=== PATIENT | female | born 1965 | race American Indian/Alaskan Native ===

== ENCOUNTER 2018-12-09 09:32 | Emergency (ER) | payer MEDICAID ==
[2018-12-09] MEDS ORDERED: Aspirin 81 MG Tab.Chew PO ONE (10:13)
[2018-12-09] MEDS ORDERED: Nitroglycerin 0.4 MG Tab.SL SL PRN (10:13)
--- NOTE | 2018-12-09 10:17 | EDM.PDOC ---
ED HPI GENERAL MEDICAL PROBLEM - General Chief Complaint: Chest Pain Stated Complaint: SOB,CHEST PAIN Time Seen by Provider: 12/09/18 09:43 Source of Information: Reports: Patient History Limitations: Reports: No Limitations - History of Present Illness INITIAL COMMENTS - FREE TEXT/NARRATIVE: HISTORY AND PHYSICAL: History of present illness: Patient is a 53-year-old female who presents to the emergency room with complaints of chest pain and shortness of breath that started last night. Patient states over the past several weeks she's been diagnosed with pneumonia, took antibiotics and was better. She states that last night she started to feel short of breath and had midsternal chest pain. She rates her pain a 10 out of 10. She has not taken any medications for her pain. She states the pain radiates into her right breast and down under her ribs. He describes the pain as sharp and intermittent. She states she has pain if she takes a deep breath in. She states the pain is also worse if she were to lay back. Patient is a current smoker and smokes about half a pack a day for 30 years. Patient states her right knee has also been hurting and seems to be a little bit more swollen. She states she is able to fully move the knee. She denies any injury to the knee. She was seeing Dr. Hernadez in clinic for her pneumonia follow up and knee pain. She states that he told her to come to the ED. Dr Hernadez reported some concern of patient's chest pain and the pain in her right lower extremity. Patient denies fever, chills, headache, nausea, vomiting, diarrhea, abdominal pain, dizziness, syncope, diaphoresis, pain that radiates into either extremity , or all other GI, , cardiovascular, or respiratory concerns. Patient denies any health history. Review of systems: As per history of present illness and below otherwise all systems reviewed and negative. Past medical history: As per history of present illness and as reviewed below otherwise noncontributory. Surgical history: As per history of present illness and as reviewed below otherwise noncontributory. Social history: See social history for further information Family history: As per history of present illness and as reviewed below otherwise noncontributory. Physical exam: Physical exam is limited due to patient's agitation/fidget. General: Well-developed and well-nourished 53-year-old female. Alert and oriented. Nontoxic appearing and in no acute distress. She appears fidgety and agitated during my interview. HEENT: Atraumatic, normocephalic, pupils equal and reactive bilaterally, negative for conjunctival pallor or scleral icterus, mucous membranes moist, TMs normal bilaterally, throat clear, neck supple, nontender, trachea midline. No drooling or trismus noted. No meningeal signs. No hot potato voice noted. Lungs: Lung exam was limited due to patient's agitation. Clear to auscultation, breath sounds equal bilaterally, chest nontender. Heart: S1S2, regular rate and rhythm without overt murmur Abdomen: Soft, nondistended, nontender. Negative for masses or hepatosplenomegaly. Negative for costovertebral tenderness. Pelvis: Stable nontender. Genitourinary: Deferred. Rectal: Deferred. Skin: Intact, warm, dry. No lesions or rashes noted. Extremities: Right knee is slightly more edematous than the left without erythema. Full range of motion and strength intact of knees bilaterally. Capillary refill less than 2 seconds. Dorsalis pedis and posterior tibial pulses are grossly intact. Atraumatic, negative for cords or calf pain. Neurovascular unremarkable. Neuro: Awake, alert, oriented. Cranial nerves II through XII unremarkable. Cerebellum unremarkable. Motor and sensory unremarkable throughout. Exam nonfocal. Notes: Exam today is limited due to patient's agitation and fidgety. To complete lab work and imaging to assess patient's complaints. After 1 tablet of nitroglycerin sublingual the patient's blood pressure did go down to 90s over 60s. Will discontinue the nitroglycerin and give her an IV fluid bolus. We'll continue to monitor patient closely. Chest x-ray shows no acute findings and no significant changes from prior exam. Patient's D.Dimer is elevated; will perform a CTA. Patient is adamant about not providing a urine sample. Unable to perform tasks due to this. Knee x-ray shows normal right knee without any effusion or acute osseous abnormality. CT of the chest is negative for pulmonary embolism. Lungs are clear with the exception of minor atelectasis/scarring of the right middle lobe. All diagnostic findings were discussed and shared with the patient. Did offer admission for patient in order to monitor her chest pain. Patient states that she is hungry and desires to go out of here as soon as possible. Declines admission. Supportive care measures were reviewed and discussed. Voices understanding and is agreeable to plan of care. Denies any further questions or concerns at this time. Diagnostics: CBC, CMP, troponin, EKG, 2 view chest, d.dimer, knee xray, CTA Therapeutics: Saline lock, aspirin, nitroglycerin sublingual 3, Toradol IV and normal saline Prescription: None Impression: 1. Chest pain, unspecified 2. Knee pain, unspecified Plan: 1. You can alternate Tylenol and ibuprofen as directed for pain and discomfort. 2. Follow-up with her primary care provider as discussed. 3. Return to the ED as needed and as discussed. Definitive disposition and diagnosis as appropriate pending reevaluation and review of above. left chest and knee Pain Score (Numeric/FACES): 10 - Related Data Allergies Allergy/AdvReac Type Severity Reaction Status Date / Time citalopram hydrobromide Allergy Hives Verified 11/08/18 01:04 [From Celexa] lamotrigine [From Lamictal] Allergy Hives Verified 11/08/18 01:04 Home Meds: Home Meds Albuterol [Proventil Neb Soln] 2.5 mg .XX Q6H #10 neb 11/06/18 [Rx] Cefdinir [Omnicef] 300 mg PO BID #10 cap 11/09/18 [Rx] Codeine/Promethazine [Phenergan with Codeine] 5 ml PO Q6HR PRN #120 ml 11/09/18 [Rx] Past Medical History - Past Health History Medical/Surgical History: Denies Medical/Surgical History Cardiovascular History: Reports: None Respiratory History: Reports: None, Pneumonia, Recurrent Other Respiratory History: just had bronchitis Gastrointestinal History: Reports: Other (See Below) Other Gastrointestinal History: ulcers Other Genitourinary History: kidney failure 1997 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 Musculoskeletal History: Reports: None Other Musculoskeletal History: Chronic Pain Psychiatric History: Reports: None Hematologic History: Reports: None - Infectious Disease History Infectious Disease History: Reports: Chicken Pox, Influenza, Measles - Past Surgical History Other GI Surgeries/Procedures: laparoscopy Female Surgical History: Reports: Other (See Below) Social & Family History - Family History Family Medical History: Noncontributory - Tobacco Use Smoking Status *Q: Never Smoker - Caffeine Use Caffeine Use: Reports: None - Recreational Drug Use Recreational Drug Use: No ED ROS GENERAL - Review of Systems Review Of Systems: ROS reveals no pertinent complaints other than HPI. ED EXAM, GENERAL - Physical Exam Exam: See Below (See dictation) Course - Vital Signs Last Recorded V/S: Last Vital Signs Temp 97.0 F 12/09/18 09:35 Pulse 81 12/09/18 09:35 Resp 18 12/09/18 09:35 BP 120/83 12/09/18 10:52 Pulse Ox 98 12/09/18 09:35 - Orders/Labs/Meds Orders: Active Orders 24 hr Category Date Time Status EKG 12 Lead [EKG Documentation Completion] [RC] STAT Care 12/09/18 10:04 Active DRUG SCREEN, URINE [URCHEM] Stat Lab 12/09/18 10:16 Ordered UA RFX SUKHDEV AND CULT IF INDIC [URIN] Stat Lab 12/09/18 10:04 Ordered Nitroglycerin [Nitrostat] Med 12/09/18 10:13 Active 0.4 mg SL Q5M PRN Medication Orders Nitroglycerin (Nitrostat) 0.4 mg SL Q5M PRN PRN Reason: Chest Pain Last Admin: 12/09/18 10:52 Dose: 0.4 mg Labs: Laboratory Tests 12/09/18 12/09/18 12/09/18 Range/Units 10:50 10:50 10:50 WBC 7.87 (4.0-11.0) K/uL RBC 4.58 (4.30-5.90) M/uL Hgb 13.2 (12.0-16.0) g/dL Hct 39.2 (36.0-46.0) % MCV 85.6 (80.0-98.0) fL MCH 28.8 (27.0-32.0) pg MCHC 33.7 (31.0-37.0) g/dL RDW Std Deviation 42.9 (28.0-62.0) fl RDW Coeff of Maverick 14 (11.0-15.0) % Plt Count 298 (150-400) K/uL MPV 9.10 (7.40-12.00) fL Neut % (Auto) 48.6 (48.0-80.0) % Lymph % (Auto) 39.4 (16.0-40.0) % [place] % (Auto) 6.9 (0.0-15.0) % Eos % (Auto) 4.6 (0.0-7.0) % Baso % (Auto) 0.5 (0.0-1.5) % Neut # (Auto) 3.8 (1.4-5.7) K/uL Lymph # (Auto) 3.1 H (0.6-2.4) K/uL [place] # (Auto) 0.5 (0.0-0.8) K/uL Eos # (Auto) 0.4 (0.0-0.7) K/uL Baso # (Auto) 0.0 (0.0-0.1) K/uL Nucleated RBC % 0.0 /100WBC Nucleated RBCs # 0 K/uL D-Dimer, Quantitative (0.0-0.50) mg/L FEU Sodium 139 (136-145) mmol/L Potassium 3.8 (3.5-5.1) mmol/L Chloride 103 (98-107) mmol/L Carbon Dioxide 26.1 (21.0-32.0) mmol/L BUN 11 (7.0-18.0) mg/dL Creatinine 0.9 (0.6-1.0) mg/dL Est Cr Clr Drug Dosing 69.23 mL/min Estimated GFR (MDRD) > 60.0 ml/min Glucose 101 (74-106) mg/dL Calcium 8.8 (8.5-10.1) mg/dL Total Bilirubin 0.3 (0.2-1.0) mg/dL AST 15 (15-37) IU/L ALT 21 (14-63) IU/L Alkaline Phosphatase 154 H (46-116) U/L Troponin I < 0.050 (0.000-0.056) ng/mL Total Protein 7.8 (6.4-8.2) g/dL Albumin 3.4 (3.4-5.0) g/dL Globulin 4.4 H (2.6-4.0) g/dL Albumin/Globulin Ratio 0.8 L (0.9-1.6) Lipase 163 (73-393) U/L H. pylori IgG Antibody (NEG) 12/09/18 12/09/18 Range/Units 10:50 10:50 WBC (4.0-11.0) K/uL RBC (4.30-5.90) M/uL Hgb (12.0-16.0) g/dL Hct (36.0-46.0) % MCV (80.0-98.0) fL MCH (27.0-32.0) pg MCHC (31.0-37.0) g/dL RDW Std Deviation (28.0-62.0) fl RDW Coeff of Maverick (11.0-15.0) % Plt Count (150-400) K/uL MPV (7.40-12.00) fL Neut % (Auto) (48.0-80.0) % Lymph % (Auto) (16.0-40.0) % [place] % (Auto) (0.0-15.0) % Eos % (Auto) (0.0-7.0) % Baso % (Auto) (0.0-1.5) % Neut # (Auto) (1.4-5.7) K/uL Lymph # (Auto) (0.6-2.4) K/uL [place] # (Auto) (0.0-0.8) K/uL Eos # (Auto) (0.0-0.7) K/uL Baso # (Auto) (0.0-0.1) K/uL Nucleated RBC % /100WBC Nucleated RBCs # K/uL D-Dimer, Quantitative 0.71 H (0.0-0.50) mg/L FEU Sodium (136-145) mmol/L Potassium (3.5-5.1) mmol/L Chloride (98-107) mmol/L Carbon Dioxide (21.0-32.0) mmol/L BUN (7.0-18.0) mg/dL Creatinine (0.6-1.0) mg/dL Est Cr Clr Drug Dosing mL/min Estimated GFR (MDRD) ml/min Glucose (74-106) mg/dL Calcium (8.5-10.1) mg/dL Total Bilirubin (0.2-1.0) mg/dL AST (15-37) IU/L ALT (14-63) IU/L Alkaline Phosphatase (46-116) U/L Troponin I (0.000-0.056) ng/mL Total Protein (6.4-8.2) g/dL Albumin (3.4-5.0) g/dL Globulin (2.6-4.0) g/dL Albumin/Globulin Ratio (0.9-1.6) Lipase (73-393) U/L H. pylori IgG Antibody NEGATIVE (NEG) Meds: Medications Generic Name Dose Route Start Last Admin Trade Name Freq PRN Reason Stop Dose Admin Nitroglycerin 0.4 mg 12/09/18 10:13 12/09/18 10:52 Nitrostat SL 0.4 mg Q5M PRN Administration Chest Pain Discontinued Medications Generic Name Dose Route Start Last Admin Trade Name Freq PRN Reason Stop Dose Admin Aspirin 324 mg 12/09/18 10:13 12/09/18 10:47 Aspirin PO 12/09/18 10:14 324 mg ONETIME ONE Administration Sodium Chloride 1,000 mls @ 999 mls/hr 12/09/18 10:59 12/09/18 11:00 Normal Saline IV 12/09/18 11:59 999 mls/hr STAT ONE Administration Iopamidol 50 ml 12/09/18 13:29 12/09/18 13:29 Isovue Multipack-370 (76%) IVPUSH 12/09/18 13:30 50 ml ONETIME ONE Administration Ketorolac Tromethamine 30 mg 12/09/18 10:58 12/09/18 11:03 Toradol IVPUSH 12/09/18 10:59 30 mg ONETIME ONE Administration Departure - Departure Time of Disposition: 14:09 Disposition: Home, Self-Care 01 Clinical Impression: Chest pain Qualifiers: Chest pain type: unspecified Qualified Code(s): R07.9 - Chest pain, unspecified Knee pain Qualifiers: Chronicity: unspecified Laterality: unspecified laterality Qualified Code(s): M25.569 - Pain in unspecified knee Instructions: Nonspecific Chest Pain, [id number], Knee Pain, Adult, Easy-to- Read Referrals: Frank Hernadez MD [Primary Care Provider] - Forms: ED Department Discharge Additional Instructions: The following information is given to patients seen in the emergency department who are being discharged to home. This information is to outline your options for follow-up care. We provide all patients seen in our emergency department with a follow-up referral. The need for follow-up, as well as the timing and circumstances, are variable depending upon the specifics of your emergency department visit. If you don't have a primary care physician on staff, we will provide you with a referral. We always advise you to contact your personal physician following an emergency department visit to inform them of the circumstance of the visit and for follow-up with them and/or the need for any referrals to a consulting specialist. The emergency department will also refer you to a specialist when appropriate. This referral assures that you have the opportunity for follow-up care with a specialist. All of these measure are taken in an effort to provide you with optimal care, which includes your follow-up. Under all circumstances we always encourage you to contact your private physician who remains a resource for coordinating your care. When calling for follow-up care, please make the office aware that this follow-up is from your recent emergency room visit. If for any reason you are refused follow-up, please contact the [facility] Emergency Department at and asked to speak to the emergency department charge nurse. [facility] [address] [place] [address] [address] 1. You can alternate Tylenol and ibuprofen as directed for pain and discomfort. 2. Follow-up with her primary care provider as discussed. 3. Return to the ED as needed and as discussed. - My Orders Last 24 Hours: My Active Orders 12/09/18 10:04 EKG 12 Lead [EKG Documentation Completion] [RC] STAT UA RFX SUKHDEV AND CULT IF INDIC [URIN] Stat 12/09/18 10:13 Nitroglycerin [Nitrostat] 0.4 mg SL Q5M PRN 12/09/18 10:16 DRUG SCREEN, URINE [URCHEM] Stat - Assessment/Plan Last 24 Hours: My Active Orders 12/09/18 10:04 EKG 12 Lead [EKG Documentation Completion] [RC] STAT UA RFX SUKHDEV AND CULT IF INDIC [URIN] Stat 12/09/18 10:13 Nitroglycerin [Nitrostat] 0.4 mg SL Q5M PRN 12/09/18 10:16 DRUG SCREEN, URINE [URCHEM] Stat
[2018-12-09 10:53] VITALS: BP 120/83
[2018-12-09] MEDS ORDERED: Ketorolac 30 MG/ML SDV IVPUSH ONE (10:58)
[2018-12-09] MEDS ORDERED: Sodium Chloride 0.9% 1,000 ML IV ONE (10:59)
--- NOTE | 2018-12-09 11:05 | CR ---
INDICATION: Chest pain and shortness of breath TECHNIQUE: Chest 2 views COMPARISON: November 08, 2018 FINDINGS: Cardiovascular and mediastinum: Heart size and vasculature are normal in caliber and appearance. Lungs and pleural spaces: Lungs are clear. No sign of infiltrate or mass. No sign of pleural effusion. No pneumothorax. Bones and soft tissues: No significant findings. IMPRESSION: No acute findings and no significant changes from the prior exam. Dictated by Rg Jordan MD @ Dec 09 2018 11:02AM Signed by Dr. Rg Jordan @ Dec 09 2018 11:03AM
[2018-12-09 11:35] LABS: CHLORIDE,CL 103 mmol/L (98-107); SODIUM,NA 139 mmol/L (136-145)
[2018-12-09] MEDS ORDERED: Iopamidol 755 MG/ML 200 ML Multipack Bottle IVPUSH ONE (13:29)
--- NOTE | 2018-12-09 13:48 | CR ---
EXAM DATE: 12/09/18 PATIENT'S AGE: 53 Patient: SALLIE FONSECA Facility: [facility] . Site : [id number] Study: XRay-Knee Right [id number]/5/2019 10:43:53 AM Ordering Physician: Asim Howell Final Report: Indication: Pain and fever Technique: Right knee 3 views Comparison: None Findings: Bones: Alignment is normal. No fractures or bone lesions. Joint spaces: Joint spaces are well maintained. No degenerative changes. No sign of joint effusion. Soft tissues: Unremarkable. Impression: Normal right knee. Dictated by Rg Jordan MD @ Dec 09 2018 10:59AM Signed by: Rg Jordan MD @12/09/2018 11:00:00 AM (Electronic Signature) Report Signed by Proxy. MTDGeorge
--- NOTE | 2018-12-09 14:07 | CT ---
INDICATION: Chest pain. SOB. Elevated D-dimer. Rule out pulmonary embolism. TECHNIQUE: Volumetric helical scanning of the thorax was performed during infusion of 50 cc of Isovue 370 contrast material IV, timing optimized for pulmonary arterial opacification. Coronal and sagittal reconstructions were obtained. COMPARISON: None. FINDINGS: The images are of acceptable quality and demonstrate uniform vascular enhancement within the pulmonary arteries. No pulmonary arterial filling defect is identified. The heart size is normal. The lungs are clear except for minor atelectasis/scarring in the right middle lobe medial segment. No pleural effusion is demonstrated. No airway abnormality is evident. No mediastinal or hilar lymphadenopathy is demonstrated. Images of the upper abdomen are unremarkable. IMPRESSION: 1. Negative for pulmonary embolism. 2. Lungs clear except for minor atelectasis/scarring in the right middle lobe medial segment. Please note that all CT scans at this facility use dose modulation, iterative reconstruction, and/or weight-based dosing when appropriate to reduce radiation dose to as low as reasonably achievable. Dictated by Daniel Graves MD @ Dec 09 2018 1:58PM Signed by Dr. Daniel Graves @ Dec 09 2018 2:05PM
== END 2018-12-09 14:24 | disposition home or self-care (01) ==
LOC: MW.ED 09:32
DX: R07.9 Chest pain, unspecified (principal); M25.561 Pain in right knee; F17.210 Nicotine dependence, cigarettes, uncomplicated; Z87.01 Personal history of pneumonia (recurrent); Z88.8 Allergy status to other drugs, medicaments and biological substances
CPT/HCPCS: 71046; 71275; 73562; 80053; 83690; 84484; 85025; 85379; 86677; 93005; 96361; 96374; 99285; A9270; J1885; J7040; Q9967; 99284

== ENCOUNTER 2019-01-02 10:30 | Day surgery (SDC) | payer MEDICAID ==
[~2019-01-02 10:30] MED LIST: Bupivacaine 0.25%/EPINEPHrine 1:200,000 10 ML SDV INJECT ONE; Lactated Ringers 1,000 ML IV SCH; Lidocaine 2% 5 ML SDV ONE; Midazolam 1 MG/ML 2 ML SDV ONE; Propofol 200 MG/20 ML SDV ONE; ceFAZolin 2 GM in Premix Bag 1 BAG IV ONE; fentaNYL 100 MCG/2 ML SDV ONE
[2019-01-02] MEDS ORDERED: Bupivacaine 0.25%/EPINEPHrine 1:200,000 10 ML SDV ONE (11:18)
[2019-01-02] MEDS ORDERED: ceFAZolin 1 GM Vial ONE ×2 (11:47→11:51)
--- NOTE | 2019-01-02 12:14 | PCM.PREANE ---
Preanesthetic Assessment - Anesthesia/Transfusion/Family Hx Anesthesia History: Prior Anesthesia Without Reaction Family History of Anesthesia Reaction: No Transfusion History: No Prior Transfusion(s) Intubation History: Unknown - Review of Systems General: No Symptoms Pulmonary: No Symptoms Cardiovascular: No Symptoms Gastrointestinal: No Symptoms Neurological: No Symptoms Other: Reports: None - Physical Assessment O2 Sat by Pulse Oximetry: 96 Respiratory Rate: 16 Vital Signs: Last Vital Signs Temp 36.6 C 01/02/19 10:56 Pulse 92 01/02/19 10:56 Resp 16 01/02/19 10:56 BP 106/74 01/02/19 10:56 Pulse Ox 96 01/02/19 10:56 Height: 1.68 m Weight: 93.44 kg ASA Class: 2 Mental Status: Alert & Oriented x3 Airway Class: Mallampati = 2 Dentition: Reports: Broken Tooth/Teeth (multiple), Missing Tooth/Teeth ( multiple ) Thyro-Mental Finger Breadths: 3 Mouth Opening Finger Breadths: 3 ROM/Head Extension: Full Lungs: Clear to Auscultation, Normal Respiratory Effort Cardiovascular: Regular Rate, Regular Rhythm - Allergies Allergies/Adverse Reactions: Allergies Allergy/AdvReac Type Severity Reaction Status Date / Time citalopram hydrobromide Allergy Hives Verified 12/31/18 09:09 [From Celexa] lamotrigine [From Lamictal] Allergy Hives Verified 12/31/18 09:09 NSAIDS (Non-Steroidal Allergy bleeding Verified 12/31/18 10:18 Anti-Inflamma ulcers - Blood Blood Available: No - Anesthesia Plan Pre-Op Medication Ordered: None - Acknowledgements Anesthesia Type Planned: MAC Pt an Appropriate Candidate for the Planned Anesthesia: Yes Alternatives and Risks of Anesthesia Discussed w Pt/Guardian: Yes Pt/Guardian Understands and Agrees with Anesthesia Plan: Yes PreAnesthesia Questionnaire - Past Health History Medical/Surgical History: Denies Medical/Surgical History HEENT History: Reports: Other (See Below) Other HEENT History: wears contacts Cardiovascular History: Reports: None Respiratory History: Reports: Other (See Below) Other Respiratory History: hx of bronchitis and pneumonia, influenza in NOV 2018 , has prescribed inhaler but states she rarely uses it, pluresy, smokes 1/2 pack of cigarettes per day for approx 35 years Gastrointestinal History: Reports: GI Bleed, Other (See Below) Other Gastrointestinal History: gastroc ulcers Genitourinary History: Reports: Other (See Below) Other Genitourinary History: kidney failure 1998 due high fever 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: Reports: Endometriosis, Other OB/BYN History: tubal ligation Musculoskeletal History: Reports: Fibromyalgia Other Musculoskeletal History: "possible RA", hx fx finger rt hand Neurological History: Reports: None Psychiatric History: Reports: Anxiety, Bipolar, Depression, PTSD Endocrine/Metabolic History: Reports: Obesity/BMI 30+ Hematologic History: Reports: None Immunologic History: 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) Oncologic (Cancer) History: Reports: None Dermatologic History: Reports: None - Infectious Disease History Infectious Disease History: Reports: Chicken Pox, Influenza, Measles, Other ( See Below) (h/o Lymes disease) - Past Surgical History Head Surgeries/Procedures: Reports: None HEENT Surgical History: Reports: None Cardiovascular Surgical History: Reports: None GI Surgical History: Reports: None Female Surgical History: Reports: Tubal Ligation, Other (See Below) Other Female Surgeries/Procedures: laparoscopy Endocrine Surgical History: Reports: None Neurological Surgical History: Reports: None Musculoskeletal Surgical History: Reports: Carpal Tunnel (right side in july), Other (See Below) Other Musculoskeletal Surgeries/Procedures:: 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25%/Epinephrine 1:200,000) 10 ml INJECT ONETIME ONE Stop: 01/02/19 08:01 Bupivacaine HCl/Epinephrine Bitart (Marcaine 0.25%/Epinephrine 1:200,000) Confirm Administered Dose 20 ml .ROUTE .STK-MED ONE Stop: 01/02/19 11:19 Cefazolin Sodium (Ancef) Confirm Administered Dose 2 gm .ROUTE .STK-MED ONE Stop: 01/02/19 11:48 Cefazolin Sodium (Ancef) Confirm Administered Dose 2 gm .ROUTE .STK-MED ONE Stop: 01/02/19 11:52 Fentanyl (Sublimaze) Confirm Administered Dose 100 mcg .ROUTE .STK-MED ONE Stop: 01/02/19 07:42 Cefazolin Sodium/Dextrose 2 gm (/ Premix) 50 mls @ 100 mls/hr IV ONETIME ONE Stop: 01/02/19 08:29 Lidocaine (Xylocaine-Mpf 2%) Confirm Administered Dose 5 ml .ROUTE .STK-MED ONE Stop: 01/02/19 07:41 Midazolam HCl (Versed 1 Mg/Ml) Confirm Administered Dose 2 mg .ROUTE .STK-MED ONE Stop: 01/02/19 07:42 Propofol (Diprivan 20 Ml) Confirm Administered Dose 200 mg .ROUTE .STK-MED ONE Stop: 01/02/19 07:42
[2019-01-02] MEDS ORDERED: Propofol 200 MG/20 ML SDV ONE (12:17)
[2019-01-02] MEDS ORDERED: Ondansetron 4 MG/2 ML SDV ONE (12:23)
[2019-01-02 13:33] VITALS: BP 110/69
--- NOTE | 2019-01-06 14:14 | PCM.OPNOTE ---
- General Post-Op/Procedure Note Date of Surgery/Procedure: 01/02/19 Operative Procedure(s): left carpal tunnel release and left middle finger trigger finger release Pre Op Diagnosis: left carpal tunnel and left middle finger trigger finger Post-Op Diagnosis: Same Anesthesia Technique: Local, MAC Primary Surgeon: Karely Cowan Tail Board Man: Cathy Thompson Complications: None Condition: Good Free Text/Narrative:: [id number]
--- NOTE | 2019-01-06 15:01 | OR ---
SURGEON: KARELY COWAN MD DATE OF PROCEDURE: 01/02/2019 PREOPERATIVE DIAGNOSES: 1. Left carpal tunnel syndrome. 2. Left middle finger trigger finger. POSTOPERATIVE DIAGNOSES: 1. Left carpal tunnel syndrome. 2. Left middle finger trigger finger. PROCEDURES PERFORMED: Left carpal tunnel release and left middle finger trigger finger release. PRIMARY SURGEON: Karely Cowan MD. WEB PRESS OPERATOR: SAI Mane. REASON FOR AND ROLE OF WEB PRESS OPERATOR: Retraction, prepping, draping, positioning and closure assistance. ANESTHESIA: Local MAC. INDICATIONS: Ms. Lopez is a 53-year-old female seen today in evaluation for left carpal tunnel and left middle finger trigger finger. Risks and benefits of release were discussed with her, and she was in agreement to proceed. She has had this done on the opposite side. Risks were including, but not limited to bleeding, infection, damage to underlying and overlying structures, possible need for future interventions, and possible scarring. She does have some persistent symptoms and has had EMG studies previously that demonstrated carpal tunnel. She would like to proceed. PROCEDURE IN DETAIL: After informed consent was obtained and placed on the chart, the patient was brought to the operating theater and laid in the supine position. After adequate local MAC anesthesia was obtained, the area was prepped and draped, and a time-out was completed to confirm side and site. 0.25% Marcaine with epinephrine was injected into the area, and the arm was exsanguinated and tourniquet was insufflated to 200 mmHg. Once adequately prepared, attention was then paid first to the transverse carpal ligament. A #15 blade was used to dissect through the skin and subcutaneous tissues until breach of the ligament. Dissection was then carried distally and proximally under direct visualization. Once adequately released, the area was irrigated and closed using 5-0 nylon stitch in a horizontal mattress fashion once appropriate release was determined. The wound was dressed with Xeroform. Attention was then paid to the middle finger trigger finger. The A1 gillian was isolated first through a #15 blade through the skin and then dissection through the subcutaneous tissues using blunt dissection with a Ray-Patel. Under direct visualization, the A1 gillian was released first with a #15 blade being breached and then dissection distally and proximally with a Littler scissor until visualization of complete release. Once adequately released, the area was irrigated and closed using a 5-0 nylon stitch in a horizontal mattress fashion. Once adequately released, both wounds were dressed with Xeroform fluffs, a Kerlix gauze dressing, and a 2-inch PRACHI wrap. The patient tolerated this well. All counts and needles were correct at the end of the case. FOLLOWUP INSTRUCTIONS: The patient will see us in 10 to 14 days, sooner if any problems, questions, or concerns. SEFERINO / ANDRADE /[id number] MTDD
== END 2019-01-02 14:01 | disposition home or self-care (01) ==
LOC: MW.SDS 10:30
PROVIDERS: ATTEND Plastic Surgery
DX: G56.02 Carpal tunnel syndrome, left upper limb (principal); M65.332 Trigger finger, left middle finger; F17.210 Nicotine dependence, cigarettes, uncomplicated; Z88.6 Allergy status to analgesic agent; Z88.8 Allergy status to other drugs, medicaments and biological substances; Z79.899 Other long term (current) drug therapy
CPT/HCPCS: 26055; 64721; J0690; J2001; J2250; J2405; J2704; J3010; J3490; J7120

== ENCOUNTER 2019-01-24 09:58 | Emergency (ER) | payer MEDICAID ==
[2019-01-24 10:26] VITALS: BP 109/80
--- NOTE | 2019-01-24 10:32 | EDM.PDOC ---
ED HPI GENERAL MEDICAL PROBLEM - General Chief Complaint: Eye Problems Stated Complaint: RIGHT EYE REDNESS Time Seen by Provider: 01/24/19 10:07 Source of Information: Reports: Patient History Limitations: Reports: No Limitations - History of Present Illness INITIAL COMMENTS - FREE TEXT/NARRATIVE: Presents reporting a 2 day history of right eye redness along with itching and tearing. No fever sore throat runny nose or ear fullness. She does report some sinus fullness. Wears contacts is not currently wearing her contact in her right eye. Denies exposure to allergic triggers or foreign body. right eye Pain Score (Numeric/FACES): 5 - Related Data Allergies Allergy/AdvReac Type Severity Reaction Status Date / Time citalopram [From Celexa] Allergy Change Verified 01/24/19 10:27 Mental Status citalopram hydrobromide Allergy Hives Verified 12/31/18 09:09 [From Celexa] duloxetine [From Cymbalta] Allergy Change Verified 01/24/19 10:27 Mental Status ibuprofen Allergy Hives Verified 01/24/19 10:27 lamotrigine [From Lamictal] Allergy Hives Verified 12/31/18 09:09 NSAIDS (Non-Steroidal Allergy bleeding Verified 12/31/18 10:18 Anti-Inflamma ulcers pregabalin [From Lyrica] Allergy Change Verified 01/24/19 10:27 Mental Status Home Meds: Home Meds Thom/Polymyx B Sulf/Dexameth [Chgpoy-Vusfs-Gmeojswf Eye Drop] 1 drop OP QID #1 drops.susp 01/24/19 [Rx] Past Medical History - Past Health History Medical/Surgical History: Denies Medical/Surgical History HEENT History: Reports: Other (See Below) Other HEENT History: wears contacts Cardiovascular History: Reports: None Respiratory History: Reports: Other (See Below) Other Respiratory History: hx of bronchitis and pneumonia, influenza in NOV 2018 , has prescribed inhaler but states she rarely uses it, pluresy, smokes 1/2 pack of cigarettes per day for approx 35 years Gastrointestinal History: Reports: GI Bleed, Other (See Below) Other Gastrointestinal History: gastroc ulcers Genitourinary History: Reports: Other (See Below) Other Genitourinary History: kidney failure 1998 due high fever 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 History: Reports: Endometriosis, Other 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 History: tubal ligation Musculoskeletal History: Reports: Fibromyalgia Other Musculoskeletal History: "possible RA", hx fx finger rt hand Neurological History: Reports: None Psychiatric History: Reports: Anxiety, Bipolar, Depression, PTSD Endocrine/Metabolic History: Reports: Obesity/BMI 30+ Hematologic History: Reports: None Immunologic History: 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) Oncologic (Cancer) History: Reports: None Dermatologic History: Reports: None - Infectious Disease History Infectious Disease History: Reports: Chicken Pox, Influenza, Measles, Other ( See Below) (h/o Lymes disease) - Past Surgical History Head Surgeries/Procedures: Reports: None HEENT Surgical History: Reports: None Cardiovascular Surgical History: Reports: None GI Surgical History: Reports: None Female Surgical History: Reports: Tubal Ligation, Other (See Below) Other Female Surgeries/Procedures: laparoscopy Endocrine Surgical History: Reports: None Neurological Surgical History: Reports: None Musculoskeletal Surgical History: Reports: Carpal Tunnel (right side in july), Other (See Below) Other Musculoskeletal Surgeries/Procedures:: 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 ED EXAM GENERAL W FULL EYE - Physical Exam Exam: See Below Exam Limited By: No Limitations General Appearance: Alert, No Apparent Distress Eye Exam: Bilateral Eye: EOMI, PERRL Visual Acuity (L) 20/: 40 Eyelids: Bilateral: Normal Appearance Conjunctiva & Sclera: Right: Injected Cornea Exam: Bilateral: Normal Appearance Extraocular Movements: Bilateral: Intact Pupils: Normal Accommodation Pupillary Size: Bilateral: 4 mm Pupillary Reaction: Bilateral: Brisk Ears: Normal External Exam, Normal TMs Nose: Normal Inspection Throat/Mouth: Normal Inspection Head: Atraumatic, Normocephalic Neck: Normal Inspection Respiratory/Chest: No Respiratory Distress, Lungs Clear Cardiovascular: Regular Rate, Rhythm, No Murmur Neurological: Alert, Oriented Psychiatric: Normal Affect, Normal Mood Skin Exam: Warm, Dry, Intact, Normal Color, No Rash Course - Vital Signs Last Recorded V/S: Last Vital Signs Temp 36.4 C 01/24/19 10:00 Pulse 105 H 01/24/19 10:00 Resp 18 01/24/19 10:00 BP 109/80 01/24/19 10:00 Pulse Ox 97 01/24/19 10:00 Departure - Departure Time of Disposition: 10:42 Disposition: Home, Self-Care 01 Condition: Good Clinical Impression: Conjunctivitis Qualifiers: Conjunctivitis type: acute Acute conjunctivitis type: unspecified Laterality: right Qualified Code(s): H10.31 - Unspecified acute conjunctivitis, right eye - Discharge Information Referrals: Frank Hernadez MD [Primary Care Provider] - [facility] [Outside] Additional Instructions: 1. Eyedrops 3 drops right eye 4 times a day until symptoms resolved. May use a left eye if symptoms start there 2. Follow-up in ophthalmology promptly if symptoms do not resolve or worsen or if vision changes. 3. No contact lenses. Wear glasses. New pair of Contacts after symptoms resolve
== END 2019-01-24 10:56 | disposition home or self-care (01) ==
LOC: MW.ED 09:58
DX: H10.31 Unspecified acute conjunctivitis, right eye (principal); F17.210 Nicotine dependence, cigarettes, uncomplicated; Z88.8 Allergy status to other drugs, medicaments and biological substances; Z88.6 Allergy status to analgesic agent
CPT/HCPCS: 99282; 99283

== ENCOUNTER 2019-04-25 23:15 | Emergency (ER) | payer MEDICAID ==
[2019-04-26] MEDS ORDERED: Sodium Chloride 0.9% 1,000 ML IV ONE (00:06)
[2019-04-26] MEDS ORDERED: Ondansetron 4 MG/2 ML SDV IVPUSH ONE (00:06)
--- NOTE | 2019-04-26 00:10 | EDM.PDOC ---
ED HPI GENERAL MEDICAL PROBLEM - General Chief Complaint: Eye Problems Stated Complaint: LT ARM HURTS Time Seen by Provider: 04/26/19 00:06 - History of Present Illness INITIAL COMMENTS - FREE TEXT/NARRATIVE: HISTORY AND PHYSICAL: History of present illness: Patient is a 54-year-old white female who had recent eye surgery and presents a concern of nausea and vomiting she was told that she would have significant discomfort in that she is use Tylenol as directed for this she states she's had nausea with vomiting and unable to keep anything down tonight. She denies fever chills or other complaints. Review of systems: As per history of present illness and below otherwise all systems reviewed and negative. Past medical history: As per history of present illness and as reviewed below otherwise noncontributory. Surgical history: As per history of present illness and as reviewed below otherwise noncontributory. Social history: No reported history of drug or alcohol abuse. Family history: As per history of present illness and as reviewed below otherwise noncontributory. Physical exam: HEENT: Atraumatic, normocephalic, pupils reactive, negative for conjunctival pallor or scleral icterus, mucous membranes moist, throat clear, neck supple, nontender, trachea midline. Lungs: Clear to auscultation, breath sounds equal bilaterally, chest nontender. Heart: S1S2, regular, negative for clicks, rubs, or JVD. Abdomen: Soft, nondistended, nontender. Negative for masses or hepatosplenomegaly. Negative for costovertebral tenderness. Pelvis: Stable nontender. Genitourinary: Deferred. Rectal: Deferred. Extremities: Atraumatic, negative for cords or calf pain. Neurovascular unremarkable. Neuro: Awake, alert, oriented. Cranial nerves II through XII unremarkable. Cerebellum unremarkable. Motor and sensory unremarkable throughout. Exam nonfocal. Diagnostics: CBC CMP Therapeutics: Saline 1 L bolus Zofran 4 mg IV Impression: #1 medical screening exam #2 observation status post recent retinal surgery #3 nausea/vomiting Definitive disposition and diagnosis as appropriate pending reevaluation and review of above. Headache Pain Score (Numeric/FACES): 10 - Related Data Allergies Allergy/AdvReac Type Severity Reaction Status Date / Time citalopram [From Celexa] Allergy Change Verified 04/26/19 00:05 Mental Status citalopram hydrobromide Allergy Hives Verified 04/26/19 00:05 [From Celexa] duloxetine [From Cymbalta] Allergy Change Verified 04/26/19 00:05 Mental Status ibuprofen Allergy Hives Verified 04/26/19 00:05 lamotrigine [From Lamictal] Allergy Hives Verified 04/26/19 00:05 NSAIDS (Non-Steroidal Allergy bleeding Verified 04/26/19 00:05 Anti-Inflamma ulcers pregabalin [From Lyrica] Allergy Change Verified 04/26/19 00:05 Mental Status Home Meds: Home Meds Thom/Polymyx B Sulf/Dexameth [Dmnwac-Kjowz-Vrvjtpkw Eye Drop] 1 drop OP QID #1 drops.susp 01/24/19 [Rx] Past Medical History - Past Health History Medical/Surgical History: Denies Medical/Surgical History HEENT History: Reports: Other (See Below) Other HEENT History: wears contacts Cardiovascular History: Reports: None Respiratory History: Reports: Other (See Below) Other Respiratory History: hx of bronchitis and pneumonia, influenza in NOV 2018 , has prescribed inhaler but states she rarely uses it, pluresy, smokes 1/2 pack of cigarettes per day for approx 35 years Gastrointestinal History: Reports: GI Bleed, Other (See Below) Other Gastrointestinal History: gastroc ulcers Genitourinary History: Reports: Other (See Below) Other Genitourinary History: kidney failure 1998 due high fever 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: Reports: Endometriosis, Other 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: tubal ligation Musculoskeletal History: Reports: Fibromyalgia Other Musculoskeletal History: "possible RA", hx fx finger rt hand Neurological History: Reports: None Psychiatric History: Reports: Anxiety, Bipolar, Depression, PTSD Endocrine/Metabolic History: Reports: Obesity/BMI 30+ Hematologic History: Reports: None Immunologic History: 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) Oncologic (Cancer) History: Reports: None Dermatologic History: Reports: None - Infectious Disease History Infectious Disease History: Reports: Chicken Pox, Influenza, Measles, Other ( See Below) (h/o Lymes disease) - Past Surgical History Head Surgeries/Procedures: Reports: None HEENT Surgical History: Reports: None Cardiovascular Surgical History: Reports: None GI Surgical History: Reports: None Female Surgical History: Reports: Tubal Ligation, Other (See Below) Other Female Surgeries/Procedures: laparoscopy Endocrine Surgical History: Reports: None Neurological Surgical History: Reports: None Musculoskeletal Surgical History: Reports: Carpal Tunnel (right side in july), Other (See Below) Other Musculoskeletal Surgeries/Procedures:: 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 ED EXAM GENERAL W FULL EYE - Physical Exam Exam: See Below (See dictation) Course - Vital Signs Last Recorded V/S: Last Vital Signs Temp 36.0 C 04/26/19 00:02 Pulse 95 04/26/19 00:02 Resp 22 H 04/26/19 00:02 BP Pulse Ox 95 04/26/19 00:02 - Orders/Labs/Meds Orders: Active Orders 24 hr Category Date Time Status CBC WITH AUTO DIFF [HEME] Stat Lab 04/26/19 00:06 Ordered COMPREHENSIVE METABOLIC PN,CMP [CHEM] Stat Lab 04/26/19 00:06 Ordered Ondansetron [Zofran] Med 04/26/19 00:06 Once 4 mg IVPUSH ONETIME ONE Sodium Chloride 0.9% [Normal Saline] 1,000 ml Med 04/26/19 00:06 Ordered IV .Bolus Saline Lock Insert [OM.PC] Stat Oth 04/26/19 00:06 Ordered Departure - Departure Time of Disposition: 00:09 Disposition: Home, Self-Care 01 Condition: Good Clinical Impression: Encounter for medical screening examination, Vomiting - Discharge Information Referrals: PCP,None [Primary Care Provider] - Additional Instructions: The following information is given to patients seen in the emergency department who are being discharged to home. This information is to outline your options for follow-up care. We provide all patients seen in our emergency department with a follow-up referral. The need for follow-up, as well as the timing and circumstances, are variable depending upon the specifics of your emergency department visit. If you don't have a primary care physician on staff, we will provide you with a referral. We always advise you to contact your personal physician following an emergency department visit to inform them of the circumstance of the visit and for follow-up with them and/or the need for any referrals to a consulting specialist. The emergency department will also refer you to a specialist when appropriate. This referral assures that you have the opportunity for followup care with a specialist. All of these measure are taken in an effort to provide you with optimal care, which includes your followup. Under all circumstances we always encourage you to contact your private physician who remains a resource for coordinating your care. When calling for followup care, please make the office aware that this follow-up is from your recent emergency room visit. If for any reason you are refused follow-up, please contact the [facility] emergency department at and asked to speak to the emergency department charge nurse. Follow-up ophthalmology/retinal surgeon as discussed return as needed as discussed - My Orders Last 24 Hours: My Active Orders 04/26/19 00:06 CBC WITH AUTO DIFF [HEME] Stat COMPREHENSIVE METABOLIC PN,CMP [CHEM] Stat Ondansetron [Zofran] 4 mg IVPUSH ONETIME ONE Sodium Chloride 0.9% [Normal Saline] 1,000 ml IV .Bolus Saline Lock Insert [OM.PC] Stat - Assessment/Plan Last 24 Hours: My Active Orders 04/26/19 00:06 CBC WITH AUTO DIFF [HEME] Stat COMPREHENSIVE METABOLIC PN,CMP [CHEM] Stat Ondansetron [Zofran] 4 mg IVPUSH ONETIME ONE Sodium Chloride 0.9% [Normal Saline] 1,000 ml IV .Bolus Saline Lock Insert [OM.PC] Stat
[2019-04-26 00:56] LABS: CHLORIDE,CL 102 mmol/L (98-107); SODIUM,NA 138 mmol/L (136-145)
== END 2019-04-26 01:48 | disposition home or self-care (01) ==
LOC: MW.ED 23:15
DX: R11.2 Nausea with vomiting, unspecified (principal); E66.9 Obesity, unspecified; F17.210 Nicotine dependence, cigarettes, uncomplicated; Z98.51 Tubal ligation status; Z88.6 Allergy status to analgesic agent; Z88.8 Allergy status to other drugs, medicaments and biological substances
CPT/HCPCS: 80053; 85025; 96361; 96374; 99284; J2405; J7040; 99283

== ENCOUNTER 2020-01-23 01:13 | Emergency (ER) | payer MEDICAID ==
[2020-01-23 01:26] VITALS: BP 111/74; PULSE 113
--- NOTE | 2020-01-23 01:48 | EDM.PDOC ---
ED HPI GENERAL MEDICAL PROBLEM - General Chief Complaint: Lower Extremity Injury/Pain Stated Complaint: PAIN FROM HIP TO ANKLE Time Seen by Provider: 01/23/20 01:14 Source of Information: Reports: Patient History Limitations: Reports: No Limitations - History of Present Illness INITIAL COMMENTS - FREE TEXT/NARRATIVE: HISTORY OF PRESENT ILLNESS: Patient is a 54-year-old female who states that she was moving a cooler bag from one area to another and it swung back and struck her in the right knee. She is unsure if she twisted the rest of her leg during this incident but now has pain from her right hip down to her ankle complains of ankle swelling. Has pain to the posterior aspect of her knee pain but pain is maximal at her ankle. Denies any weakness or paresthesias. No head injury or loss of consciousness. No chest pain or dyspnea. No abdominal pain. Denies any other injury. Is not on anticoagulants. REVIEW OF SYSTEMS: Other than the symptoms associated with the present events, the following is reported with regard to recent health: General: (-) fever. HENT: (-) congestion. Respiratory: (-) cough. Cardiovascular: (-) chest pain. GI: (-) abdominal pain. : (-) urinary complaints. Musculoskeletal: (+)RLE pain. Endocrine: (-) generalized weakness. Neurological: (-) localized weakness. Skin: (-) rash PAST MEDICAL HISTORY: reviewed as per nursing notes SOCIAL HISTORY: reviewed as per nursing notes, MEDICATIONS: Per nurse's note ALLERGIES: Per nurse's note, reviewed by me PHYSICAL EXAMINATION: GENERALIZED APPEARANCE: well developed, well nourished in mild distress VITAL SIGNS: Per nurse's note, reviewed by me SKIN: Warm, dry; (-) cyanosis; (-) rash. HEAD: (-) scalp swelling, (-) tenderness. EYES: (-) conjunctival pallor, (-) scleral icterus. ENMT: (-) stridor; mucous membranes moist. NECK: (-) tenderness, (-) stiffness, CHEST AND RESPIRATORY: (-) rales, (-) rhonchi, (-) wheezes; breath sounds equal bilaterally. HEART AND CARDIOVASCULAR: (-) irregularity; (-) murmur, (-) gallop. ABDOMEN AND GI: Soft; (-) tenderness, (-) guarding, (-) rebound, (-) palpable masses, EXTREMITIES: (-) deformity, (+) STS right ankle. TTP medial and lateral malleolus. no proximal fibular tenderness. TTP right posterior knee and distal femur. Right trochanteric tenderness. 2+ DP. cap refill <2 sec. sensation intact. ROM limited secondary to pain but 5/5+ strength. neg ant/posterior drawer sign. neg santiago's NEURO AND PSYCH: Alert. Cranial nerves grossly intact; strength symmetric. sensation intact. EMERGENCY DEPARTMENT COURSE AND TREATMENT: Patient's condition remained stable during Emergency Department evaluation. Based on history, physical exam, and diagnostic evaluation, the patient appears to have symptoms consistent with a contusion and sprain. There was some suspicion for fracture, however imaging was negative. (please see radiologist report). The patient appears otherwise well without obvious other injury. I recommended rest, ice, and pain medication when necessary. If the pain is not improving after 48 hours I recommended a follow-up appointment for repeat examination and possible further imaging. PLAN AND FOLLOW-UP: Patient received written and verbal instructions regarding this condition. Return to ED immediately with any new or worsening symptoms. Follow up to be arranged by patient with pcp in 1-2 days for further evaluation. Given discharge precautions. patient expressed verbal understanding. Right Hip Pain Score (Numeric/FACES): 10 - Related Data Allergies Allergy/AdvReac Type Severity Reaction Status Date / Time citalopram [From Celexa] Allergy Change Verified 01/23/20 01:28 Mental Status citalopram hydrobromide Allergy Hives Verified 01/23/20 01:28 [From Celexa] duloxetine [From Cymbalta] Allergy Change Verified 01/23/20 01:28 Mental Status ibuprofen Allergy Hives Verified 01/23/20 01:28 lamotrigine [From Lamictal] Allergy Hives Verified 01/23/20 01:28 NSAIDS (Non-Steroidal Allergy bleeding Verified 01/23/20 01:28 Anti-Inflamma ulcers pregabalin [From Lyrica] Allergy Change Verified 01/23/20 01:28 Mental Status Home Meds: Home Meds Thom/Polymyx B Sulf/Dexameth [Tzkzmf-Osged-Mxbmkaxf Eye Drop] 1 drop OP QID #1 drops.susp 01/24/19 [Rx] Past Medical History - Past Health History Medical/Surgical History: Denies Medical/Surgical History HEENT History: Reports: Other (See Below) Other HEENT History: wears contacts Cardiovascular History: Reports: None Respiratory History: Reports: Other (See Below) Other Respiratory History: hx of bronchitis and pneumonia, influenza in NOV 2018 , has prescribed inhaler but states she rarely uses it, pluresy, smokes 1/2 pack of cigarettes per day for approx 35 years Gastrointestinal History: Reports: GI Bleed, Other (See Below) Other Gastrointestinal History: gastroc ulcers Genitourinary History: Reports: Other (See Below) Other Genitourinary History: kidney failure 1997 due high fever 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: Reports: Endometriosis, Other 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: tubal ligation Musculoskeletal History: Reports: Fibromyalgia Other Musculoskeletal History: "possible RA", hx fx finger rt hand Neurological History: Reports: None Psychiatric History: Reports: Anxiety, Bipolar, Depression, PTSD Endocrine/Metabolic History: Reports: Obesity/BMI 30+ Hematologic History: Reports: None Immunologic History: Reports: Other (See Below) Oncologic (Cancer) History: Reports: None Dermatologic History: Reports: None - Infectious Disease History Infectious Disease History: Reports: Chicken Pox, Influenza, Measles, Other ( See Below) (h/o Lymes disease) - Past Surgical History Head Surgeries/Procedures: Reports: None HEENT Surgical History: Reports: None, Eye Surgery Other HEENT Surgeries/Procedures: 01/06/20 Cardiovascular Surgical History: Reports: None GI Surgical History: Reports: None Female Surgical History: Reports: Tubal Ligation, Other (See Below) Other Female Surgeries/Procedures: laparoscopy Endocrine Surgical History: Reports: None Neurological Surgical History: Reports: None Musculoskeletal Surgical History: Reports: Carpal Tunnel, Other (See Below) Other Musculoskeletal Surgeries/Procedures:: 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 Oncologic Surgical History: Reports: None Dermatological Surgical History: Reports: None Social & Family History - Family History Family Medical History: Noncontributory - Tobacco Use Smoking Status *Q: Current Every Day Smoker Years of Tobacco use: 40 Packs/Tins Daily: 0.2 - Caffeine Use Caffeine Use: Reports: None - Recreational Drug Use Recreational Drug Use: No Review of Systems - Review of Systems Review Of Systems: See Below (see dictation) ED EXAM, GENERAL - Physical Exam Exam: See Below (see dictation) Course - Vital Signs Last Recorded V/S: Last Vital Signs Temp 97.3 F 01/23/20 01:25 Pulse 113 H 01/23/20 01:25 Resp 20 01/23/20 01:25 BP 111/74 01/23/20 01:25 Pulse Ox 98 01/23/20 01:25 Departure - Departure Time of Disposition: 02:54 Disposition: Home, Self-Care 01 Condition: Good Clinical Impression: Knee contusion, Ankle sprain - Discharge Information *PRESCRIPTION DRUG MONITORING PROGRAM REVIEWED*: Not Applicable *COPY OF PRESCRIPTION DRUG MONITORING REPORT IN PATIENT RAMILA: Not Applicable Instructions: Ankle Sprain, [id number], Contusion, [id number] Referrals: Maddie Pacheco [Ordering Only Provider] - 1 Day Forms: ED Department Discharge Additional Instructions: The following information is given to patients seen in the emergency department who are being discharged to home. This information is to outline your options for follow-up care. We provide all patients seen in our emergency department with a follow-up referral. The need for follow-up, as well as the timing and circumstances, are variable depending upon the specifics of your emergency department visit. If you don't have a primary care physician on staff, we will provide you with a referral. We always advise you to contact your personal physician following an emergency department visit to inform them of the circumstance of the visit and for follow-up with them and/or the need for any referrals to a consulting specialist. The emergency department will also refer you to a specialist when appropriate. This referral assures that you have the opportunity for follow-up care with a specialist. All of these measure are taken in an effort to provide you with optimal care, which includes your follow-up. Under all circumstances we always encourage you to contact your private physician who remains a resource for coordinating your care. When calling for follow-up care, please make the office aware that this follow-up is from your recent emergency room visit. If for any reason you are refused follow-up, please contact the [facility] Emergency Department at and asked to speak to the emergency department charge nurse. Sepsis Event Note - Evaluation Sepsis Screening Result: No Definite Risk - Focused Exam Vital Signs: Vital Signs Temp Pulse Resp BP Pulse Ox 01/23/20 01:25 97.3 F 113 H 20 111/74 98 Date Exam was Performed: 01/23/20 Time Exam was Performed: 02:58
--- NOTE | 2020-01-23 02:43 | CR ---
Indication: Pain Technique: Frontal view right femur Comparison: None Findings: Bones: Alignment is normal. No fractures or bone lesions. Joint spaces: Unremarkable. Soft tissues: Unremarkable. Impression: Negative. Dictated by Cathy Hernandez MD @ Jan 23 2020 2:42AM Signed by Dr. Cathy Hernandez @ Jan 23 2020 2:42AM
--- NOTE | 2020-01-23 02:45 | CR ---
Indication: Pain Technique: Frontal view right foot Comparison: None Findings: Bones: Alignment is normal. No fractures or bone lesions. Joint spaces: Unremarkable. Soft tissues: Unremarkable. Impression: Negative. Dictated by Cathy Hernandez MD @ Jan 23 2020 2:43AM Signed by Dr. Cathy Hernandez @ Jan 23 2020 2:43AM
--- NOTE | 2020-01-23 02:45 | CR ---
Indication: Pain Technique: Frontal view right tibia and fibula Comparison: None Findings: Bones: Alignment is normal. No fractures or bone lesions. Joint spaces: Unremarkable. Soft tissues: Unremarkable. Impression: Negative. Dictated by Cathy Hernandez MD @ Jan 23 2020 2:44AM Signed by Dr. Cathy Hernandez @ Jan 23 2020 2:44AM
--- NOTE | 2020-01-23 02:47 | CR ---
Indication: Pain Technique: Two-view right knee Comparison: None Findings: Bones: Alignment is normal. No fractures or bone lesions. Joint spaces: Unremarkable. Soft tissues: Unremarkable. Impression: Negative. Dictated by Cathy Hernandez MD @ Jan 23 2020 2:45AM Signed by Dr. Cathy Hernandez @ Jan 23 2020 2:45AM
--- NOTE | 2020-01-23 02:47 | CR ---
Indication: Pain Technique: Three-view right ankle Comparison: None Findings: Bones: Alignment is normal. No fractures or bone lesions. Joint spaces: Unremarkable. Soft tissues: Unremarkable. Impression: Negative. Dictated by Cathy Hernandez MD @ Jan 23 2020 2:44AM Signed by Dr. Cathy Hernandez @ Jan 23 2020 2:44AM
== END 2020-01-23 03:05 | disposition home or self-care (01) ==
LOC: MW.ED 01:13
DX: S93.401A Sprain of unspecified ligament of right ankle, initial encounter (principal); S80.01XA Contusion of right knee, initial encounter; E66.9 Obesity, unspecified; Z68.37 Body mass index [BMI] 37.0-37.9, adult; F17.210 Nicotine dependence, cigarettes, uncomplicated; Z88.1 Allergy status to other antibiotic agents; Z88.8 Allergy status to other drugs, medicaments and biological substances; Z88.6 Allergy status to analgesic agent; W22.8XXA Striking against or struck by other objects, initial encounter
CPT/HCPCS: 73551-26-RT; 73551-RT; 73560-26-RT; 73560-RT; 73590-26-RT; 73590-RT; 73610-26-RT; 73610-RT; 73620-26-RT; 73620-RT; 99283; 99283-25

== ENCOUNTER 2020-07-08 15:51 | Emergency (ER) | payer MEDICAID, OTHER ==
[2020-07-08] MEDS ORDERED: Sodium Chloride 0.9% 1,000 ML IV ONE (16:15)
[2020-07-08 17:14] LABS: BLOOD UREA NITROGEN,BUN 12 mg/dL (7.0-18.0); CARBON DIOXIDE,CO2 30.9 mmol/L (21.0-32.0); CHLORIDE,CL 100 mmol/L (98-107); GLUCOSE RANDOM 120 mg/dL (74-106); POTASSIUM,K 3.3 mmol/L (3.5-5.1); SODIUM,NA 137 mmol/L (136-145)
--- NOTE | 2020-07-08 17:27 | CR ---
Indication: Cough Technique: Chest 1 view Comparison: 12/09/2018 Findings/Impression: Cardiovascular and mediastinum: Unremarkable cardiomediastinal silhouette for a portable technique. Lungs and pleural space: An ill-defined medial right infrahilar opacity, mildly more conspicuous compared to the prior study, which is at least partially related to regional vascular crowding/focal atelectasis, however correlate clinically and follow-up to exclude an evolving infiltrate. Otherwise no consolidation. No pleural effusions. No pneumothorax seen. Bones and soft tissues: No significant findings. Dictated by Parveen Baumann MD @ Jul 08 2020 5:23PM Signed by Dr. Parveen Baumann @ Jul 08 2020 5:26PM
--- NOTE | 2020-07-08 17:37 | EDM.PDOC ---
ED HPI GENERAL MEDICAL PROBLEM - General Chief Complaint: Fever Stated Complaint: SWOLLEN GLANDS Time Seen by Provider: 07/08/20 15:51 Source of Information: Reports: Patient History Limitations: Reports: No Limitations - History of Present Illness INITIAL COMMENTS - FREE TEXT/NARRATIVE: HISTORY AND PHYSICAL: History of present illness: Review of systems: As per history of present illness and below otherwise all systems reviewed and negative. Past medical history: As per history of present illness and as reviewed below otherwise noncontributory. Surgical history: As per history of present illness and as reviewed below otherwise noncontributory. Social history: See social history for further information Family history: As per history of present illness and as reviewed below otherwise noncontributory. Physical exam: General: Well developed and well nourished. Alert and orientated x 3. Nontoxic in appearance and in no acute distress. Vital signs are stable and have been reviewed by me. Nursing notes were reviewed. HEENT: Atraumatic, normocephalic, pupils equal and reactive bilaterally, negative for conjunctival pallor or scleral icterus, mucous membranes moist, TMs normal bilaterally, throat clear, no fullness or pillar shifting, neck supple, nontender, trachea midline. No lymphadenopathy noted. No drooling or trismus noted. No meningeal signs. No hot potato voice noted. Lungs: Clear to auscultation, breath sounds equal bilaterally, chest nontender. Normal work of breathing, no accessory muscles used. Heart: S1S2, regular rate and rhythm without overt murmur Abdomen: Soft, nondistended, nontender. Negative for masses or hepatosplenomegaly. Negative for costovertebral tenderness. Skin: Intact, warm, dry. No lesions or rashes noted. Hematologic: No petechiae or purpra. Mucosa appropriate color and normal nail bed color and refill. Extremities: Atraumatic, moves all extremities per self without difficulty or deficits, negative for cords or calf pain. Neurovascular unremarkable. Neuro: Awake, alert, oriented. Cranial nerves II through XII unremarkable. Cerebellum unremarkable. Motor and sensory unremarkable throughout. Exam nonfocal. Psychiatric: Mood and affect are appropriate. Normal thought process. Answering questions appropriately. Notes: Lab work is unremarkable. Chest x-ray shows an ill-defined medial right infrahilar opacity, suspicious for him prior study, correlate clinically to exclude an evolving infiltrate. Due to patient's complaint I will put her on Z- Rusty. 1 dose of Phenergan with codeine will be given to patient to take home, as she drove herself here. I have spoken with the patient and discussed today's findings, in addition to providing specific details for plan of care. Reassessment at the time of disposition demonstrates that the patient is in no acute distress. Medication, follow up and supportive care measures were reviewed and discussed. Voices understanding and is agreeable to plan of care. Denies any further questions or concerns at this time. Diagnostics: CBC, CMP, CXR, Strep, COVID Therapeutics: IV fluid Prescription: Z-Rusty Impression: Bronchitis Plan: 1. Today your lab work, chest x-ray and vital signs are within normal limits. Your strep screening and COVID-19 screening was also negative. 2. You can alternate Tylenol and Ibuprofen as needed for pain and fever management. 3. We encourage you to follow up with your primary care provider and/or recommended specialist in the next few days for re-evaluation and further care/management. If your symptoms should worsen, new symptoms develop or any of the signs and symptoms we discussed should arise please return to the emergency room or call 911 (if needed). Definitive disposition and diagnosis as appropriate pending reevaluation and review of above. bilateral neck Pain Score (Numeric/FACES): 10 - Related Data Allergies Allergy/AdvReac Type Severity Reaction Status Date / Time citalopram [From Celexa] Allergy Change Verified 07/08/20 16:06 Mental Status citalopram hydrobromide Allergy Hives Verified 07/08/20 16:06 [From Celexa] duloxetine [From Cymbalta] Allergy Change Verified 07/08/20 16:06 Mental Status ibuprofen Allergy Hives Verified 07/08/20 16:06 lamotrigine [From Lamictal] Allergy Hives Verified 07/08/20 16:06 NSAIDS (Non-Steroidal Allergy bleeding Verified 07/08/20 16:06 Anti-Inflamma ulcers pregabalin [From Lyrica] Allergy Change Verified 07/08/20 16:06 Mental Status Home Meds: Home Meds Neomycin/Polymyxin B/Dexametha [Dvpnpd-Bjtii-Xiwkuvbl Eye Drop] 1 drop OP QID #1 drops.susp 01/24/19 [Rx] Azithromycin [Zithromax] 1 dose PO DAILY 5 Days #6 tab 07/08/20 [Rx] Past Medical History - Past Health History Medical/Surgical History: Denies Medical/Surgical History HEENT History: Reports: Other (See Below) Other HEENT History: Detached R retina; 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" Cardiovascular History: Reports: None Respiratory History: Reports: Other (See Below) Other Respiratory History: hx of bronchitis and pneumonia, influenza in NOV 2018, has prescribed inhaler but states she rarely uses it, pluresy, smokes 1/2 pack of cigarettes per day for approx 35 years Gastrointestinal History: Reports: GI Bleed, Other (See Below) Other Gastrointestinal History: gastric ulcers Genitourinary History: Reports: Other (See Below) Other Genitourinary History: kidney failure 1998 due high fever 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: Reports: Endometriosis, Other 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: tubal ligation Musculoskeletal History: Reports: Fibromyalgia Other Musculoskeletal History: "possible RA", hx fx finger rt hand Neurological History: Reports: None Psychiatric History: Reports: Anxiety, Bipolar, Depression, PTSD Endocrine/Metabolic History: Reports: Obesity/BMI 30+ Hematologic History: Reports: None Immunologic History: Reports: Other (See Below) Oncologic (Cancer) History: Reports: None Dermatologic History: Reports: None - Infectious Disease History Infectious Disease History: Reports: Chicken Pox - Past Surgical History Head Surgeries/Procedures: Reports: None HEENT Surgical History: Reports: None, Eye Surgery Other HEENT Surgeries/Procedures: 01/06/20 Cardiovascular Surgical History: Reports: None GI Surgical History: Reports: Colonoscopy Female Surgical History: Reports: Tubal Ligation, Other (See Below) Other Female Surgeries/Procedures: laparoscopy Endocrine Surgical History: Reports: None Neurological Surgical History: Reports: None Musculoskeletal Surgical History: Reports: Carpal Tunnel, Other (See Below) Other Musculoskeletal Surgeries/Procedures:: 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 ED EXAM, GENERAL - Physical Exam Exam: See Below (See dictation) Course - Vital Signs Last Recorded V/S: Last Vital Signs Temp 98.2 F 07/08/20 15:57 Pulse 91 07/08/20 17:00 Resp 18 07/08/20 17:00 BP 111/72 07/08/20 17:00 Pulse Ox 94 L 07/08/20 17:00 - Orders/Labs/Meds Orders: Active Orders 24 hr Category Date Time Status CORONAVIRUS COVID-19 PCR PHL Stat Lab 07/08/20 16:44 Ordered CULTURE STREP A CONFIRMATION [RM] Stat Lab 07/08/20 16:36 Results STREP SCRN A RAPID W CULT CONF [RM] Stat Lab 07/08/20 16:36 Results Labs: Laboratory Tests 07/08/20 07/08/20 07/08/20 Range/Units 16:33 16:35 16:35 WBC 8.76 (4.0-11.0) K/uL RBC 4.52 (4.30-5.90) M/uL Hgb 13.2 (12.0-16.0) g/dL Hct 40.0 (36.0-46.0) % MCV 88.5 (80.0-98.0) fL MCH 29.2 (27.0-32.0) pg MCHC 33.0 (31.0-37.0) g/dL RDW Std Deviation 45.2 (28.0-62.0) fl RDW Coeff of Maverick 14 (11.0-15.0) % Plt Count 267 (150-400) K/uL MPV 9.50 (7.40-12.00) fL Neut % (Auto) 57.9 (48.0-80.0) % Lymph % (Auto) 29.7 (16.0-40.0) % Bledsoe % (Auto) 9.5 (0.0-15.0) % Eos % (Auto) 2.3 (0.0-7.0) % Baso % (Auto) 0.6 (0.0-1.5) % Neut # (Auto) 5.1 (1.4-5.7) K/uL Lymph # (Auto) 2.6 H (0.6-2.4) K/uL Bledsoe # (Auto) 0.8 (0.0-0.8) K/uL Eos # (Auto) 0.2 (0.0-0.7) K/uL Baso # (Auto) 0.1 (0.0-0.1) K/uL Nucleated RBC % 0.0 /100WBC Nucleated RBCs # 0 K/uL Sodium 137 (136-145) mmol/L Potassium 3.3 L (3.5-5.1) mmol/L Chloride 100 (98-107) mmol/L Carbon Dioxide 30.9 (21.0-32.0) mmol/L BUN 12 (7.0-18.0) mg/dL Creatinine 0.8 (0.6-1.0) mg/dL Est Cr Clr Drug Dosing 76.13 mL/min Estimated GFR (MDRD) > 60.0 ml/min Glucose 120 H (74-106) mg/dL Calcium 8.5 (8.5-10.1) mg/dL Total Bilirubin 0.2 (0.2-1.0) mg/dL AST 22 (15-37) IU/L ALT 35 (14-63) IU/L Alkaline Phosphatase 143 H (46-116) U/L Total Protein 7.7 (6.4-8.2) g/dL Albumin 3.2 L (3.4-5.0) g/dL Globulin 4.5 H (2.6-4.0) g/dL Albumin/Globulin Ratio 0.7 L (0.9-1.6) SARS CoV-2 RNA Rapid JOLANTA NEGATIVE (NEGATIVE) Meds: Medications Discontinued Medications Generic Name Dose Route Start Last Admin Trade Name Freq PRN Reason Stop Dose Admin Sodium Chloride 1,000 mls @ 999 mls/hr 07/08/20 16:15 07/08/20 16:27 Normal Saline IV 07/08/20 17:15 999 mls/hr STAT ONE Administration Departure - Departure Time of Disposition: 17:41 Disposition: Home, Self-Care 01 Clinical Impression: Bronchitis - Discharge Information Prescriptions: Azithromycin [Zithromax] 1 dose PO DAILY 5 Days #6 tab Instructions: Upper Respiratory Infection, Adult, [id number] Referrals: PCP,None [Primary Care Provider] - Forms: ED Department Discharge Additional Instructions: The following information is given to patients seen in the emergency department who are being discharged to home. This information is to outline your options for follow-up care. We provide all patients seen in our emergency department with a follow-up referral. The need for follow-up, as well as the timing and circumstances, are variable depending upon the specifics of your emergency department visit. If you don't have a primary care physician on staff, we will provide you with a referral. We always advise you to contact your personal physician following an emergency department visit to inform them of the circumstance of the visit and for follow-up with them and/or the need for any referrals to a consulting specialist. The emergency department will also refer you to a specialist when appropriate. This referral assures that you have the opportunity for follow-up care with a specialist. All of these measure are taken in an effort to provide you with optimal care, which includes your follow-up. Under all circumstances we always encourage you to contact your private physician who remains a resource for coordinating your care. When calling for follow-up care, please make the office aware that this follow-up is from your recent emergency room visit. If for any reason you are refused follow-up, please contact the [facility] Emergency Department at and asked to speak to the emergency department charge nurse. [facility] Primary Care [address] [place] [id number] [place] [address] Thank you for choosing the [facility] emergency department in [place] for your medical needs today. It was a pleasure caring for you. Today you were seen in the emergency department for fever, sore throat, cough. 1. Today your lab work and vital signs are within normal limits. Your strep screening and COVID-19 screening was also negative. 2. Take antibiotic for bronchitis as directed. You can alternate Tylenol and Ibuprofen as needed for pain and fever management. 3. We encourage you to follow up with your primary care provider and/or recommended specialist in the next few days for re-evaluation and further care/management. If your symptoms should worsen, new symptoms develop or any of the signs and symptoms we discussed should arise please return to the emergency room or call 911 (if needed). Sepsis Event Note (ED) - Evaluation Sepsis Screening Result: No Definite Risk - Focused Exam Vital Signs: Vital Signs Temp Pulse Resp BP Pulse Ox 07/08/20 17:00 91 18 111/72 94 L 07/08/20 15:57 98.2 F 101 H 19 128/80 96 - My Orders Last 24 Hours: My Active Orders 07/08/20 16:36 CULTURE STREP A CONFIRMATION [RM] Stat STREP SCRN A RAPID W CULT CONF [RM] Stat 07/08/20 16:44 CORONAVIRUS COVID-19 PCR PHL Stat - Assessment/Plan Last 24 Hours: My Active Orders 07/08/20 16:36 CULTURE STREP A CONFIRMATION [RM] Stat STREP SCRN A RAPID W CULT CONF [RM] Stat 07/08/20 16:44 CORONAVIRUS COVID-19 PCR PHL Stat
[2020-07-08] MEDS ORDERED: Codeine/Promethazine 10-6.25 MG/5 ML Syrup 5 ML UD Cup PO STA (17:42)
[2020-07-08 17:58] VITALS: BP 126/81; PULSE 95
== END 2020-07-08 17:57 | disposition home or self-care (01) ==
LOC: MW.ED 15:51
DX: J40 Bronchitis, not specified as acute or chronic (principal); Z88.6 Allergy status to analgesic agent; Z88.8 Allergy status to other drugs, medicaments and biological substances; Z20.828 Contact with and (suspected) exposure to other viral communicable diseases; E66.9 Obesity, unspecified; Z68.34 Body mass index [BMI] 34.0-34.9, adult
CPT/HCPCS: 36415; 71045; 80053; 85025; 87081; 87635; 87880; 96360; 99283; A9270; J7030; 99284; U0002

== ENCOUNTER 2020-12-21 08:08 | Emergency (ER) | payer MEDICAID ==
[2020-12-21 08:28] VITALS: BP 110/76; PULSE 106
--- NOTE | 2020-12-21 08:36 | EDM.PDOC ---
ED HPI GENERAL MEDICAL PROBLEM - General Chief Complaint: Lower Extremity Injury/Pain Stated Complaint: LEFT LEG SWOLLEN Time Seen by Provider: 12/21/20 08:28 Source of Information: Reports: Patient History Limitations: Reports: No Limitations - History of Present Illness INITIAL COMMENTS - FREE TEXT/NARRATIVE: Patient is a 55-year-old female who presents today for left knee pain. Patient states that she fell a few days ago almost 2 weeks onto her left knee and was given a knee immobilizer and crutches by outside facility. Patient this is at times with her knee pain is increased and she has some swelling to the knee and calf. Patient she went to the Internet and was concerned she may have a clot in her leg. Patient denies any fever chills shortness of breath chest pain or palpitations. Patient also denies any new injury to the leg as well. left leg Pain Score (Numeric/FACES): 4 - Related Data Allergies Allergy/AdvReac Type Severity Reaction Status Date / Time citalopram [From Celexa] Allergy Change Verified 12/21/20 08:28 Mental Status citalopram hydrobromide Allergy Hives Verified 12/21/20 08:28 [From Celexa] duloxetine [From Cymbalta] Allergy Change Verified 12/21/20 08:28 Mental Status ibuprofen Allergy Hives Verified 12/21/20 08:28 lamotrigine [From Lamictal] Allergy Hives Verified 12/21/20 08:28 NSAIDS (Non-Steroidal Allergy bleeding Verified 12/21/20 08:28 Anti-Inflamma ulcers pregabalin [From Lyrica] Allergy Change Verified 12/21/20 08:28 Mental Status Home Meds: Home Meds Neomycin/Polymyxin B/Dexametha [Ermxmt-Xlbty-Ssypnovi Eye Drop] 1 drop OP QID #1 drops.susp 01/24/19 [Rx] Past Medical History - Past Health History Medical/Surgical History: Denies Medical/Surgical History HEENT History: Reports: Other (See Below) Other HEENT History: Detached R retina; 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" Cardiovascular History: Reports: None Respiratory History: Reports: Other (See Below) Other Respiratory History: hx of bronchitis and pneumonia, influenza in NOV 2018, has prescribed inhaler but states she rarely uses it, pluresy, smokes 1/2 pack of cigarettes per day for approx 35 years Gastrointestinal History: Reports: GI Bleed, Other (See Below) Other Gastrointestinal History: gastric ulcers Genitourinary History: Reports: Other (See Below) Other Genitourinary History: kidney failure 1998 due high fever 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: Reports: Endometriosis, Other 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: tubal ligation Musculoskeletal History: Reports: Fibromyalgia Other Musculoskeletal History: "possible RA", hx fx finger rt hand Neurological History: Reports: None Psychiatric History: Reports: Anxiety, Bipolar, Depression, PTSD Endocrine/Metabolic History: Reports: Obesity/BMI 30+ Hematologic History: Reports: None Immunologic History: Reports: Other (See Below) Oncologic (Cancer) History: Reports: None Dermatologic History: Reports: None - Infectious Disease History Infectious Disease History: Reports: Chicken Pox - Past Surgical History Head Surgeries/Procedures: Reports: None HEENT Surgical History: Reports: None, Eye Surgery Other HEENT Surgeries/Procedures: 01/06/20 Cardiovascular Surgical History: Reports: None GI Surgical History: Reports: Colonoscopy Female Surgical History: Reports: Tubal Ligation, Other (See Below) Other Female Surgeries/Procedures: laparoscopy Endocrine Surgical History: Reports: None Neurological Surgical History: Reports: None Musculoskeletal Surgical History: Reports: Carpal Tunnel, Other (See Below) Other Musculoskeletal Surgeries/Procedures:: 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 Oncologic Surgical History: Reports: None Dermatological Surgical History: Reports: None Social & Family History - Family History Family Medical History: No Pertinent Family History - Caffeine Use Caffeine Use: Reports: None - Recreational Drug Use Recreational Drug Use: No Review of Systems - Review of Systems Review Of Systems: See Below Constitutional: Reports: No Symptoms Eyes: Reports: No Symptoms Ears: Reports: No Symptoms Nose: Reports: No Symptoms Mouth/Throat: Reports: No Symptoms Respiratory: Reports: No Symptoms Cardiovascular: Reports: No Symptoms GI/Abdominal: Reports: No Symptoms Genitourinary: Reports: No Symptoms Musculoskeletal: Reports: Leg Pain Skin: Reports: No Symptoms Neurological: Reports: No Symptoms Psychiatric: Reports: No Symptoms ED EXAM, GENERAL - Physical Exam Exam: See Below Exam Limited By: No Limitations General Appearance: Alert, WD/WN Eye Exam: Bilateral Eye: EOMI, PERRL Neck: Normal Inspection Respiratory/Chest: No Respiratory Distress, Lungs Clear Cardiovascular: Normal Peripheral Pulses, Regular Rate, Rhythm GI/Abdominal: Normal Bowel Sounds, Soft, Non-Tender Extremities: Normal Inspection, Normal Range of Motion, Non-Tender, Leg Pain. No: Redness Neurological: Alert, Oriented, Normal Cognition Course - Vital Signs Last Recorded V/S: Last Vital Signs Temp 96.2 F L 12/21/20 08:26 Pulse 106 H 12/21/20 08:26 Resp 16 12/21/20 08:26 BP 110/76 12/21/20 08:26 Pulse Ox 99 12/21/20 08:26 - Re-Assessments/Exams Free Text/Narrative Re-Assessment/Exam: 12/21/20 10:18 Patient's DVT is negative patient still has a slight amount of pain but does not want any pain medicine she has a drive home and is take care of her granddaughter. Patient is scheduled follow-up with orthopedics next week. Patient knee is not red or swollen and can be ranged without discomfort. Departure - Departure Time of Disposition: 10:19 Disposition: Home, Self-Care 01 Condition: Good Clinical Impression: Knee pain Qualifiers: Chronicity: unspecified Laterality: unspecified laterality Qualified Code(s): M25.569 - Pain in unspecified knee - Discharge Information *PRESCRIPTION DRUG MONITORING PROGRAM REVIEWED*: Not Applicable *COPY OF PRESCRIPTION DRUG MONITORING REPORT IN PATIENT RAMILA: Not Applicable Instructions: Knee Sprain, Adult, [id number] Referrals: Simona Brunson MD [Primary Care Provider] - Forms: ED Department Discharge Additional Instructions: The following information is given to patients seen in the emergency department who are being discharged to home. This information is to outline your options for follow-up care. We provide all patients seen in our emergency department with a follow-up referral. The need for follow-up, as well as the timing and circumstances, are variable depending upon the specifics of your emergency department visit. If you don't have a primary care physician on staff, we will provide you with a referral. We always advise you to contact your personal physician following an emergency department visit to inform them of the circumstance of the visit and for follow-up with them and/or the need for any referrals to a consulting specialist. The emergency department will also refer you to a specialist when appropriate. This referral assures that you have the opportunity for follow-up care with a specialist. All of these measure are taken in an effort to provide you with optimal care, which includes your follow-up. Under all circumstances we always encourage you to contact your private physician who remains a resource for coordinating your care. When calling for follow-up care, please make the office aware that this follow-up is from your recent emergency room visit. If for any reason you are refused follow-up, please contact the [facility] Emergency Department at and asked to speak to the emergency department charge nurse. Please follow up with your primary care physician. If you do not have a primary care physician, see below: [facility] Primary [facility] [address] [place] [id number] [facility] [address] [place] [address] [facility] [address] [place] [address], [address] [place] [address] Please continue to follow-up with orthopedic. If you have any increased symptoms or pain please return to the ED immediately. Sepsis Event Note (ED) - Evaluation Sepsis Screening Result: No Definite Risk - Focused Exam Vital Signs: Vital Signs Temp Pulse Resp BP Pulse Ox 12/21/20 08:26 96.2 F L 106 H 16 110/76 99 - Assessment/Plan Plan: Patient is a 55-year-old female who presents today for knee pain. Patient reports increased swelling to her knee or calf and behind her knee as well. We will obtain a DVT study pain control and reassess.
--- NOTE | 2020-12-21 09:57 | US ---
INDICATION: Leg pain and swelling TECHNIQUE: Ultrasound venous duplex lower left extremity. Compression venous exam was performed using mckeon-scale, color Doppler, and spectral Doppler analysis. COMPARISON: None. FINDINGS: Sonographic imaging demonstrates the left common femoral, deep femoral, superficial femoral, popliteal, posterior tibial and greater saphenous and the contralateral right common femoral veins to be fully compressible with normal color Doppler blood flow. IMPRESSION: Normal left lower extremity venous ultrasound, no sign of deep venous thrombosis. Dictated by Ino Sims MD @ Dec 21 2020 9:55AM Signed by Dr. Ino Sims @ Dec 21 2020 9:56AM
== END 2020-12-21 10:28 | disposition home or self-care (01) ==
LOC: MW.ED 08:08
DX: M25.562 Pain in left knee (principal); F17.210 Nicotine dependence, cigarettes, uncomplicated; E66.9 Obesity, unspecified; Z68.37 Body mass index [BMI] 37.0-37.9, adult; Z88.8 Allergy status to other drugs, medicaments and biological substances; Z88.6 Allergy status to analgesic agent
CPT/HCPCS: 93971-26-LT; 93971-LT; 99283-25

== ENCOUNTER 2021-04-14 13:51 | Emergency (ER) | payer MEDICAID ==
[2021-04-14] MEDS ORDERED: Dexamethasone 10 MG/ML SDV IV ONE (14:10)
[2021-04-14] MEDS ORDERED: Ketorolac 30 MG/ML SDV IVPUSH ONE (14:11)
[2021-04-14 14:13] VITALS: BP 133/84; PULSE 104
--- NOTE | 2021-04-14 14:16 | EDM.PDOC ---
ED HPI GENERAL MEDICAL PROBLEM - General Chief Complaint: ENT Problem Stated Complaint: NECK SWOLLEN, HI TEMP QDX9 Time Seen by Provider: 04/14/21 13:54 Source of Information: Reports: Patient History Limitations: Reports: No Limitations - History of Present Illness INITIAL COMMENTS - FREE TEXT/NARRATIVE: Patient is a 56-year-old female who presents today for neck pain for the past 3 days. Patient is all started at she had [employer] her and her friend at work that had some neck pain. Has similar items. States that she also has some pain with eating and swallowing was able to breathe clearly. She did take an [id number] [place] cold medication without tried any Tylenol or Motrin for the pain. She denies any nausea or vomiting. Patient also reports some body aches at times well but denies any chest pain abdominal pain no other concerning signs or symptoms. Throat Pain Score (Numeric/FACES): 8 - Related Data Allergies Allergy/AdvReac Type Severity Reaction Status Date / Time citalopram [From Celexa] Allergy Change Verified 04/14/21 14:10 Mental Status citalopram hydrobromide Allergy Hives Verified 04/14/21 14:10 [From Celexa] duloxetine [From Cymbalta] Allergy Change Verified 04/14/21 14:10 Mental Status ibuprofen Allergy Hives Verified 04/14/21 14:10 lamotrigine [From Lamictal] Allergy Hives Verified 04/14/21 14:10 NSAIDS (Non-Steroidal Allergy bleeding Verified 04/14/21 14:10 Anti-Inflamma ulcers pregabalin [From Lyrica] Allergy Change Verified 04/14/21 14:10 Mental Status Home Meds: Home Meds . 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" Cardiovascular History: Reports: None Respiratory History: Reports: Other (See Below) Other Respiratory History: hx of bronchitis and pneumonia, influenza in NOV 2018, has prescribed inhaler but states she rarely uses it, pluresy, smokes 1/2 pack of cigarettes per day for approx 35 years Gastrointestinal History: Reports: GI Bleed, Other (See Below) Other Gastrointestinal History: gastric ulcers Genitourinary History: Reports: Other (See Below) Other Genitourinary History: kidney failure 1998 due high fever 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: Reports: Endometriosis, Other 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: tubal ligation Musculoskeletal History: Reports: Fibromyalgia Other Musculoskeletal History: "possible RA", hx fx finger rt hand Neurological History: Reports: None Psychiatric History: Reports: Anxiety, Bipolar, Depression, PTSD Endocrine/Metabolic History: Reports: Obesity/BMI 30+ Hematologic History: Reports: None Immunologic History: Reports: Other (See Below) Oncologic (Cancer) History: Reports: None Dermatologic History: Reports: None - Infectious Disease History Infectious Disease History: Reports: Chicken Pox - Past Surgical History Head Surgeries/Procedures: Reports: None HEENT Surgical History: Reports: None, Eye Surgery Other HEENT Surgeries/Procedures: 01/06/20 Cardiovascular Surgical History: Reports: None GI Surgical History: Reports: Colonoscopy Female Surgical History: Reports: Tubal Ligation, Other (See Below) Other Female Surgeries/Procedures: laparoscopy Endocrine Surgical History: Reports: None Neurological Surgical History: Reports: None Musculoskeletal Surgical History: Reports: Carpal Tunnel, Other (See Below) Other Musculoskeletal Surgeries/Procedures:: 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 Oncologic Surgical History: Reports: None Dermatological Surgical History: Reports: None Social & Family History - Family History Family Medical History: No Pertinent Family History - Caffeine Use Caffeine Use: Reports: None ED ROS ENT - Review of Systems Review Of Systems: See Below Constitutional: Reports: No Symptoms HEENT: Reports: No Symptoms Respiratory: Reports: No Symptoms Endocrine: Reports: No Symptoms GI/Abdominal: Reports: No Symptoms : Reports: No Symptoms Musculoskeletal: Reports: No Symptoms Skin: Reports: No Symptoms Neurological: Reports: No Symptoms Psychiatric: Reports: No Symptoms Hematologic/Lymphatic: Reports: No Symptoms Immunologic: Reports: No Symptoms ED EXAM, ENT - Physical Exam Exam: See Below Exam Limited By: No Limitations General Appearance: Alert, WD/WN, No Apparent Distress Eye Exam: Bilateral Eye: EOMI, PERRL Mouth/Throat: Normal Inspection. No: Tonsillar Erythema, Tonsillar Exudates Head: Atraumatic, Normocephalic Neck: Normal Inspection, Supple, Tender Lateral Respiratory/Chest: No Respiratory Distress, Lungs Clear, Normal Breath Sounds Cardiovascular: Normal Peripheral Pulses, Regular Rate, Rhythm GI/Abdominal: Normal Bowel Sounds, Soft, Non-Tender Extremities: Normal Inspection Neurological: Alert, Oriented Course - Vital Signs Last Recorded V/S: Last Vital Signs Temp 99.6 F 04/14/21 14:11 Pulse 104 H 04/14/21 14:11 Resp 16 04/14/21 14:11 BP 133/84 04/14/21 14:11 Pulse Ox 96 04/14/21 14:11 - Orders/Labs/Meds Orders: Active Orders 24 hr Category Date Time Status COMPREHENSIVE METABOLIC PN,CMP [CHEM] Stat Lab 04/14/21 14:30 Received CREATINE KINASE,CK [CHEM] Stat Lab 04/14/21 14:30 Received STREP A BY PCR [MOLEC] Stat Lab 04/14/21 14:11 Ordered UA W/SUKHDEV RFLX IF INDICATED [URIN] Stat Lab 04/14/21 14:09 Received Labs: Laboratory Tests 04/14/21 Range/Units 14:30 WBC 11.07 H (4.0-11.0) K/uL RBC 4.71 (4.30-5.90) M/uL Hgb 13.9 (12.0-16.0) g/dL Hct 40.9 (36.0-46.0) % MCV 86.8 (80.0-98.0) fL MCH 29.5 (27.0-32.0) pg MCHC 34.0 (31.0-37.0) g/dL RDW Std Deviation 42.6 (28.0-62.0) fl RDW Coeff of Maverick 13 (11.0-15.0) % Plt Count 335 (150-400) K/uL MPV 9.60 (7.40-12.00) fL Neut % (Auto) 59.3 (48.0-80.0) % Lymph % (Auto) 30.2 (16.0-40.0) % Randolph % (Auto) 6.9 (0.0-15.0) % Eos % (Auto) 3.1 (0.0-7.0) % Baso % (Auto) 0.5 (0.0-1.5) % Neut # (Auto) 6.6 H (1.4-5.7) K/uL Lymph # (Auto) 3.3 H (0.6-2.4) K/uL Randolph # (Auto) 0.8 (0.0-0.8) K/uL Eos # (Auto) 0.3 (0.0-0.7) K/uL Baso # (Auto) 0.1 (0.0-0.1) K/uL Nucleated RBC % 0.0 /100WBC Nucleated RBCs # 0 K/uL Meds: Medications Discontinued Medications Generic Name Dose Route Start Last Admin Trade Name Ivis PRN Reason Stop Dose Admin Dexamethasone 10 mg 04/14/21 14:10 04/14/21 14:40 Dexamethasone 10 Mg/Ml Sdv IV 04/14/21 14:11 10 mg ONETIME ONE Administration Ketorolac Tromethamine 30 mg 04/14/21 14:11 04/14/21 14:39 Ketorolac 30 Mg/Ml Sdv IVPUSH 04/14/21 14:12 30 mg ONETIME ONE Administration - Re-Assessments/Exams Free Text/Narrative Re-Assessment/Exam: 04/14/21 14:57 Patient became upset and feels AMA we splinted her last night back. We will continue to watch last year already sent. She is upset that we gave her Decadron and it made her feel funny this point we will give her Decadron and she is still not satisfied with the nurse and I both spoke to the patient at length the patient still was AMA. Departure - Departure Time of Disposition: 14:57 Disposition: Against Medical Advice 07 Condition: Fair Clinical Impression: Throat pain - Discharge Information *PRESCRIPTION DRUG MONITORING PROGRAM REVIEWED*: Not Applicable *COPY OF PRESCRIPTION DRUG MONITORING REPORT IN PATIENT RAMILA: Not Applicable Referrals: PCP,Unknown [Primary Care Provider] - Forms: ED Department Discharge Sepsis Event Note (ED) - Focused Exam Vital Signs: Vital Signs Temp Pulse Resp BP Pulse Ox 04/14/21 14:11 99.6 F 104 H 16 133/84 96 - My Orders Last 24 Hours: My Active Orders 04/14/21 14:09 UA W/SUKHDEV RFLX IF INDICATED [URIN] Stat 04/14/21 14:11 STREP A BY PCR [MOLEC] Stat 04/14/21 14:30 COMPREHENSIVE METABOLIC PN,CMP [CHEM] Stat CREATINE KINASE,CK [CHEM] Stat - Assessment/Plan Last 24 Hours: My Active Orders 04/14/21 14:09 UA W/SUKHDEV RFLX IF INDICATED [URIN] Stat 04/14/21 14:11 STREP A BY PCR [MOLEC] Stat 04/14/21 14:30 COMPREHENSIVE METABOLIC PN,CMP [CHEM] Stat CREATINE KINASE,CK [CHEM] Stat Plan: Patient is a 56-year-old female presents today for neck pain and body aches. Will test patient for strep throat provide Decadron and Toradol for pain also send UA and reassess.
[2021-04-14 14:57] LABS: CARBON DIOXIDE,CO2 29.3 mmol/L (21.0-32.0); POTASSIUM,K 3.6 mmol/L (3.5-5.1)
== END 2021-04-14 14:46 | disposition left against medical advice (07) ==
LOC: MW.ED 13:51
DX: R07.0 Pain in throat (principal); E66.9 Obesity, unspecified; Z68.35 Body mass index [BMI] 35.0-35.9, adult; Z88.5 Allergy status to narcotic agent; Z88.8 Allergy status to other drugs, medicaments and biological substances; Z87.891 Personal history of nicotine dependence
CPT/HCPCS: 80053; 81001; 82550; 85025; 96374; 96375; 99283; J1100; J1885

== ENCOUNTER 2021-09-20 01:40 | Emergency (ER) | payer MEDICAID ==
--- NOTE | 2021-09-20 01:44 | EDM.PDOC ---
ED HPI GENERAL MEDICAL PROBLEM - General Stated Complaint: CAN'T SEE OUT OF LEFT EYE Time Seen by Provider: 09/20/21 01:41 Source of Information: Reports: Patient History Limitations: Reports: No Limitations - History of Present Illness INITIAL COMMENTS - FREE TEXT/NARRATIVE: Please see downtime paper chart left eye Pain Score (Numeric/FACES): 10 - Related Data Allergies Allergy/AdvReac Type Severity Reaction Status Date / Time citalopram [From Celexa] Allergy Change Verified 09/20/21 01:48 Mental Status citalopram hydrobromide Allergy Hives Verified 09/20/21 01:48 [From Celexa] duloxetine [From Cymbalta] Allergy Change Verified 09/20/21 01:48 Mental Status ibuprofen Allergy Hives Verified 09/20/21 01:48 lamotrigine [From Lamictal] Allergy Hives Verified 09/20/21 01:48 NSAIDS (Non-Steroidal Allergy bleeding Verified 09/20/21 01:48 Anti-Inflamma ulcers pregabalin [From Lyrica] Allergy Change Verified 09/20/21 01:48 Mental Status Home Meds: Home Meds . 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" Cardiovascular History: Reports: None Respiratory History: Reports: Other (See Below) Other Respiratory History: hx of bronchitis and pneumonia, influenza in NOV 2018, has prescribed inhaler but states she rarely uses it, pluresy, smokes 1/2 pack of cigarettes per day for approx 35 years Gastrointestinal History: Reports: GI Bleed, Other (See Below) Other Gastrointestinal History: gastric ulcers Genitourinary History: Reports: Other (See Below) Other Genitourinary History: kidney failure 1998 due high fever 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, 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: tubal ligation Musculoskeletal History: Reports: Fibromyalgia Other Musculoskeletal History: "possible RA", hx fx finger rt hand Neurological History: Reports: None Psychiatric History: Reports: Anxiety, Bipolar, Depression, PTSD Endocrine/Metabolic History: Reports: Obesity/BMI 30+ Hematologic History: Reports: None Immunologic History: Reports: Other (See Below) Oncologic (Cancer) History: Reports: None Dermatologic History: Reports: None - Infectious Disease History Infectious Disease History: Reports: Chicken Pox - Past Surgical History Head Surgeries/Procedures: Reports: None HEENT Surgical History: Reports: None, Eye Surgery Other HEENT Surgeries/Procedures: 01/06/20 Cardiovascular Surgical History: Reports: None GI Surgical History: Reports: Colonoscopy Female Surgical History: Reports: Tubal Ligation, Other (See Below) Other Female Surgeries/Procedures: laparoscopy Endocrine Surgical History: Reports: None Neurological Surgical History: Reports: None Musculoskeletal Surgical History: Reports: Carpal Tunnel, Other (See Below) Other Musculoskeletal Surgeries/Procedures:: 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 Oncologic Surgical History: Reports: None Dermatological Surgical History: Reports: None Social & Family History - Family History Family Medical History: No Pertinent Family History - Caffeine Use Caffeine Use: Reports: Coffee ED ROS GENERAL - Review of Systems Review Of Systems: See Below (see dictation) ED EXAM, GENERAL - Physical Exam Exam: See Below (see dictation) Course - Vital Signs Last Recorded V/S: Last Vital Signs Temp 97.1 F 09/20/21 01:48 Pulse 88 09/20/21 03:40 Resp 18 09/20/21 03:40 BP 110/70 09/20/21 03:40 Pulse Ox 98 09/20/21 03:40 - Orders/Labs/Meds Meds: Medications Discontinued Medications Generic Name Dose Route Start Last Admin Trade Name Freq PRN Reason Stop Dose Admin Tetracaine HCl Confirm 09/20/21 02:28 09/20/21 06:14 Tetracaine Hcl/Pf 0.5% 4 Ml Bottle Administered 09/20/21 02:29 2 drop Dose Administration 4 ml .ROUTE .STK-MED ONE - Re-Assessments/Exams Free Text/Narrative Re-Assessment/Exam: 09/20/21 0200 Please see T-sheet documentation of system went to downtime at 2 AM Departure - Departure Time of Disposition: 03:01 Disposition: Home, Self-Care 01 Clinical Impression: Corneal abrasion - Discharge Information *PRESCRIPTION DRUG MONITORING PROGRAM REVIEWED*: Not Applicable *COPY OF PRESCRIPTION DRUG MONITORING REPORT IN PATIENT RAMILA: Not Applicable Referrals: Zach Wisdom MD [Ordering Only Provider] - 2 Days Forms: ED Department Discharge Additional Instructions: The need for follow-up, as well as the timing and circumstances, are variable depending upon the specifics of your emergency department visit. If you don't have a primary care physician on staff, we will provide you with a referral. We always advise you to contact your personal physician following an emergency department visit to inform them of the circumstance of the visit and for follow-up with them and/or the need for any referrals to a consulting specialist. The emergency department will also refer you to a specialist when appropriate. This referral assures that you have the opportunity for follow-up care with a specialist. All of these measure are taken in an effort to provide you with optimal care, which includes your follow-up. Under all circumstances we always encourage you to contact your private physician who remains a resource for coordinating your care. When calling for follow-up care, please make the office aware that this follow-up is from your recent emergency room visit. If for any reason you are refused follow-up, please contact the [facility] Emergency Department at and asked to speak to the emergency department charge nurse. If you do not have a primary care doctor, please follow up with the clinics below within 3-5 days. [facility] [address] [place] [address] [facility] [address] [place] [id number] Sepsis Event Note (ED) - Focused Exam Vital Signs: Vital Signs Temp Pulse Resp BP Pulse Ox 09/20/21 03:40 88 18 110/70 98 09/20/21 01:48 97.1 F 90 18 128/74 97
[2021-09-20] MEDS ORDERED: Tetracaine HCl/PF 0.5% 4 ML Bottle ONE (02:28)
[2021-09-20 06:18] VITALS: BP 110/70; PULSE 88
== END 2021-09-20 03:40 | disposition home or self-care (01) ==
LOC: MW.ED 01:40
DX: S05.02XA Injury of conjunctiva and corneal abrasion without foreign body, left eye, initial encounter (principal); E66.9 Obesity, unspecified; Z68.32 Body mass index [BMI] 32.0-32.9, adult; Z88.8 Allergy status to other drugs, medicaments and biological substances; Z88.5 Allergy status to narcotic agent; W22.8XXA Striking against or struck by other objects, initial encounter
CPT/HCPCS: 99283

== ENCOUNTER 2021-11-01 14:05 | Emergency (ER) | payer MEDICAID | END 2021-11-01 14:10 | LOC: MW.ED 14:05 | DX: Z53.21 Procedure and treatment not carried out due to patient leaving prior to being seen by health care provider (principal) ==

== ENCOUNTER 2021-11-09 10:00 | Emergency (ER) | payer MEDICAID ==
[2021-11-09] MEDS ORDERED: Sodium Chloride 0.9% 1,000 ML IV ONE (10:53)
[2021-11-09] MEDS ORDERED: Acetaminophen 500 MG Tab PO ONE (11:03)
[2021-11-09] MEDS ORDERED: Ondansetron 4 MG/2 ML SDV IVPUSH ONE (11:03)
[2021-11-09 11:23] LABS: CARBON DIOXIDE,CO2 27.7 mmol/L (21.0-32.0); POTASSIUM,K 3.5 mmol/L (3.5-5.1)
[2021-11-09 11:57] LABS: CORONAVIRUS COVID-19 NAA POSITIVE (NEGATIVE); INFLUENZA A NAA NEGATIVE (NEGATIVE); INFLUENZA B NAA NEGATIVE (NEGATIVE)
[2021-11-09 14:02] VITALS: BP 98/51; PULSE 90
== END 2021-11-09 14:04 | disposition home or self-care (01) ==
LOC: MW.ED 10:00
DX: U07.1 COVID-19 (principal); E66.9 Obesity, unspecified; Z68.32 Body mass index [BMI] 32.0-32.9, adult; Z88.8 Allergy status to other drugs, medicaments and biological substances
CPT/HCPCS: 0240U; 36415; 80053; 81003; 83690; 85025; 96374; 99284; A9270; J2405; J7030

== ENCOUNTER 2022-07-03 15:38 | Emergency (ER) | payer MEDICAID ==
[2022-07-03 15:50] VITALS: PULSE 86
[2022-07-03 17:56] VITALS: BP 132/68
== END 2022-07-03 16:37 | disposition home or self-care (01) ==
LOC: MW.ED 15:38
DX: T24.202A Burn of second degree of unspecified site of left lower limb, except ankle and foot, initial encounter (principal); Z88.8 Allergy status to other drugs, medicaments and biological substances; X19.XXXA Contact with other heat and hot substances, initial encounter
CPT/HCPCS: 99283

== ENCOUNTER 2023-05-26 07:24 | Observation (INO) | payer MEDICAID ==
[2023-05-26] MEDS ORDERED: Sodium Chloride 0.9% 10 ML Syringe FLUSH PRN ×2 (07:40→11:11)
[2023-05-26] MEDS ORDERED: Sodium Chloride 0.9% 1,000 ML IV ONE (07:40)
[2023-05-26] MEDS ORDERED: Sodium Chloride 0.9% 2.5 ML Syringe FLUSH PRN ×2 (07:40→11:11)
[2023-05-26] MEDS ORDERED: Metoclopramide 10 MG/2 ML SDV IVPUSH ONE (07:42)
[2023-05-26] MEDS ORDERED: diphenhydrAMINE 50 MG/ML SDV IVPUSH ONE (07:42)
[2023-05-26 08:20] LABS: BASOPHILS PERCENT AUTO 0.7 % (0.0-1.5); EOSINOPHILS ABSOLUTE AUTO 0.3 K/uL (0.0-0.7); EOSINOPHILS PERCENT AUTO 4.5 % (0.0-7.0); HEMATOCRIT 39.2 % (36.0-46.0); LYMPHOCYTES ABSOLUTE AUTO 2.3 K/uL (0.6-2.4); LYMPHOCYTES PERCENT AUTO 39.9 % (16.0-40.0); MEAN CORPUSCULAR HEMOGLOBIN 29.3 pg (27.0-32.0); MEAN CORPUSCULAR HGB CONC 33.2 g/dL (31.0-37.0); MEAN CORPUSCULAR VOLUME 88.5 fL (80.0-98.0); MONOCYTES ABSOLUTE AUTO 0.4 K/uL (0.0-0.8); MONOCYTES PERCENT AUTO 6.7 % (0.0-15.0); NEUTROPHILS ABSOLUTE AUTO 2.8 K/uL (1.4-5.7); NEUTROPHILS PERCENT AUTO 48.2 % (48.0-80.0); NRBC ABSOLUTE 0 K/uL; PLATELET COUNT,PLT 262 K/uL (150-400); RED BLOOD CELL COUNT 4.43 M/uL (4.30-5.90); WHITE BLOOD CELL COUNT,WBC 5.84 K/uL (4.0-11.0)
[2023-05-26 08:31] LABS: INR 0.96 (0.86-1.11)
[2023-05-26 08:49] LABS: A/G RATIO 0.7 (0.9-1.6); ALANINE AMINOTRANSFERASE,ALT 18 IU/L (14-63); ALKALINE PHOSPHATASE 117 U/L (46-116); ASPARTATE AMNIOTRANSFERASE,AST 14 IU/L (15-37); BILIRUBIN TOTAL 0.3 mg/dL (0.2-1.0); BLOOD UREA NITROGEN,BUN 15 mg/dL (7.0-18.0); CALCIUM 8.5 mg/dL (8.5-10.1); CARBON DIOXIDE,CO2 31.2 mmol/L (21.0-32.0); CHLORIDE,CL 105 mmol/L (98-107); CREATININE 0.7 mg/dL (0.6-1.0); EST CRCL DRUG DOSING (CG) 84.01 mL/min; GLUCOSE RANDOM 100 mg/dL (74-106); LIPASE 39 U/L (16-77); POTASSIUM,K 3.3 mmol/L (3.5-5.1); PROTEIN TOTAL,TP 7.2 g/dL (6.4-8.2); SODIUM,NA 142 mmol/L (136-145)
[2023-05-26] MEDS ORDERED: LORazepam 2 MG/ML SDV IVPUSH ONE (08:53)
[2023-05-26 08:54] LABS: ESTIMATED GFR 101 mL/min (>60)
[2023-05-26] MEDS ORDERED: Aspirin 81 MG Tab.Chew PO ONE (11:06)
[2023-05-26] MEDS ORDERED: Acetaminophen 325 MG Tab PO PRN (11:11)
[2023-05-26] MEDS ORDERED: Polyethylene Glycol 3350 Powder 17 GM Packet PO PRN (11:11)
[2023-05-26] MEDS ORDERED: Ondansetron 4 MG/2 ML SDV IVPUSH PRN (11:11)
[2023-05-26] MEDS ORDERED: Albuterol/Ipratropium 3.0-0.5 MG/3 ML Neb Soln NEB PRN (11:11)
[2023-05-26] MEDS ORDERED: Potassium Chloride 20 MEQ Tab.ER PO ONE (11:21)
[2023-05-26 12:00] LABS: MAGNESIUM 1.9 mg/dL (1.8-2.4); TSH ULTRASENSITIVE 1.58 uIU/mL (0.36-3.74)
[2023-05-27 05:50] LABS: BASOPHILS PERCENT AUTO 0.7 % (0.0-1.5); EOSINOPHILS ABSOLUTE AUTO 0.4 K/uL (0.0-0.7); HEMATOCRIT 39.8 % (36.0-46.0); LYMPHOCYTES ABSOLUTE AUTO 2.9 K/uL (0.6-2.4); LYMPHOCYTES PERCENT AUTO 48.7 % (16.0-40.0); MEAN CORPUSCULAR HEMOGLOBIN 28.7 pg (27.0-32.0); MEAN CORPUSCULAR HGB CONC 32.7 g/dL (31.0-37.0); MEAN CORPUSCULAR VOLUME 87.9 fL (80.0-98.0); MONOCYTES ABSOLUTE AUTO 0.5 K/uL (0.0-0.8); MONOCYTES PERCENT AUTO 7.7 % (0.0-15.0); NEUTROPHILS ABSOLUTE AUTO 2.2 K/uL (1.4-5.7); NEUTROPHILS PERCENT AUTO 36.9 % (48.0-80.0); NRBC ABSOLUTE 0 K/uL; PLATELET COUNT,PLT 269 K/uL (150-400); RED BLOOD CELL COUNT 4.53 M/uL (4.30-5.90); WHITE BLOOD CELL COUNT,WBC 5.98 K/uL (4.0-11.0)
[2023-05-27 06:17] LABS: CALCIUM 8.3 mg/dL (8.5-10.1); CARBON DIOXIDE,CO2 28.5 mmol/L (21.0-32.0); CREATININE 0.8 mg/dL (0.6-1.0); EST CRCL DRUG DOSING (CG) 73.51 mL/min; MAGNESIUM 1.8 mg/dL (1.8-2.4); POTASSIUM,K 4.3 mmol/L (3.5-5.1)
[2023-05-27] MEDS ORDERED: Gadobenate Dimeglumine 529 MG/ML 20 ML SDV IVPUSH STA (07:33)
[2023-05-27] MEDS ORDERED: Aspirin 81 MG Tab.EC PO SCH (09:45)
[2023-05-27] MEDS ORDERED: atorvaSTATin 40 MG Tab PO SCH (09:45)
[2023-05-27] MEDS ORDERED: SUMAtriptan 50 MG Tab PO PRN (11:43)
[2023-05-27 15:26] VITALS: BP 136/94; PULSE 87
== END 2023-05-27 16:30 | disposition home or self-care (01) ==
LOC: MW.ED 07:24 → MW.MS 11:15
PROVIDERS: ADMIT Family Medicine; ATTEND Family Medicine
DX: G43.909 Migraine, unspecified, not intractable, without status migrainosus (principal); R42 Dizziness and giddiness; F41.9 Anxiety disorder, unspecified; F17.210 Nicotine dependence, cigarettes, uncomplicated; F43.10 Post-traumatic stress disorder, unspecified; E66.9 Obesity, unspecified; J18.9 Pneumonia, unspecified organism; J40 Bronchitis, not specified as acute or chronic; R27.0 Ataxia, unspecified; D89.9 Disorder involving the immune mechanism, unspecified; Z88.1 Allergy status to other antibiotic agents; Z88.6 Allergy status to analgesic agent; Z87.19 Personal history of other diseases of the digestive system; Z79.82 Long term (current) use of aspirin; Z68.29 Body mass index [BMI] 29.0-29.9, adult; Z79.899 Other long term (current) drug therapy
CPT/HCPCS: 36415; 70450; 70496; 70498; 70544; 70549; 70553; 71045; 80048; 80053; 80061; 82607; 83690; 83735; 84443; 84484; 85025; 85610; 93005; 93306; 96361; 96374; 96375; 97162; 99285; A9270; A9577; J1200; J2060; J2405; J2765; J3490; J7030; 93010; G0378

== ENCOUNTER 2024-01-10 23:28 | Emergency (ER) | payer MEDICAID ==
[2024-01-10 23:52] VITALS: BP 126/73; PULSE 84
== END 2024-01-11 00:08 | disposition home or self-care (01) ==
LOC: MW.ED 23:28
DX: H10.9 Unspecified conjunctivitis (principal); Z88.8 Allergy status to other drugs, medicaments and biological substances; Z88.6 Allergy status to analgesic agent; Z79.899 Other long term (current) drug therapy; Z86.19 Personal history of other infectious and parasitic diseases; Z75.8 Other problems related to medical facilities and other health care
CPT/HCPCS: 99283

== ENCOUNTER 2024-02-15 16:01 | Emergency (ER) | payer SELFPAY ==
[2024-02-15 16:50] VITALS: BP 117/81; PULSE 100
== END 2024-02-15 18:32 | disposition home or self-care (01) ==
LOC: MW.ED 16:01
DX: H57.11 Ocular pain, right eye (principal); Z88.8 Allergy status to other drugs, medicaments and biological substances; Z88.5 Allergy status to narcotic agent; Z88.6 Allergy status to analgesic agent; Z79.899 Other long term (current) drug therapy; Z75.8 Other problems related to medical facilities and other health care
CPT/HCPCS: 99282; 99283

== ENCOUNTER 2024-03-28 18:15 | Emergency (ER) | payer SELFPAY ==
[2024-03-28] MEDS: Lidocaine 1% 5 ML VIAL INJECT ONE (19:10)
[2024-03-28] MEDS: Cephalexin 500 MG Cap PO ONE (20:34)
[2024-03-28 20:55] VITALS: BP 110/78; PULSE 82
== END 2024-03-28 20:54 | disposition home or self-care (01) ==
LOC: MW.ED 18:15
DX: S91.201A Unspecified open wound of right great toe with damage to nail, initial encounter (principal); Z88.6 Allergy status to analgesic agent; Z88.8 Allergy status to other drugs, medicaments and biological substances; W20.8XXA Other cause of strike by thrown, projected or falling object, initial encounter
CPT/HCPCS: 73660; 99283; A9270; J3490

== ENCOUNTER 2024-06-23 18:50 | Emergency (ER) | payer MEDICAID ==
[2024-06-23] MEDS: Morphine 4 MG/ML Syringe IVPUSH ONE (19:06)
[2024-06-23] MEDS: Lidocaine 4% 1 each Patch TOP ONE (19:07)
[2024-06-23 19:16] LABS: BASOPHILS ABSOLUTE AUTO 0.04 K/uL (0.00-0.20); BASOPHILS PERCENT AUTO 0.5 % (0.0-1.0); EOSINOPHILS ABSOLUTE AUTO 0.22 K/uL (0.00-0.45); EOSINOPHILS PERCENT AUTO 2.9 % (0.0-6.0); HEMOGLOBIN 11.4 g/dL (12.0-16.0); IMMATURE GRAN ABSOLUTE AUTO 0.02 K/uL (0.00-0.05); IMMATURE GRAN PERCENT AUTO 0.3 % (0.0-0.4); LYMPHOCYTES ABSOLUTE AUTO 3.23 K/uL (1.00-4.80); MEAN CORPUSCULAR HEMOGLOBIN 29.5 pg (28.0-32.0); MEAN CORPUSCULAR HGB CONC 33.5 g/dL (32.0-36.0); MEAN CORPUSCULAR VOLUME 87.9 fL (83.0-99.0); MEAN PLATELET VOLUME 8.8 fL (9.4-12.3); MONOCYTES ABSOLUTE AUTO 0.58 K/uL (0.00-0.80); MONOCYTES PERCENT AUTO 7.5 % (0.0-8.0); NEUTROPHILS PERCENT AUTO 46.8 % (41.0-71.0); PLATELET COUNT,PLT 223 K/uL (150-400); RED BLOOD CELL COUNT 3.87 M/uL (4.10-5.30); WHITE BLOOD CELL COUNT,WBC 7.69 K/uL (3.9-11.3)
[2024-06-23 19:39] LABS: A/G RATIO 0.8 (0.9-1.6); BILIRUBIN TOTAL 0.3 mg/dL (0.2-1.0); CALCIUM 8.6 mg/dL (8.5-10.1); CARBON DIOXIDE,CO2 31.9 mmol/L (21.0-32.0); CREATININE 0.9 mg/dL (0.6-1.0); EST CRCL DRUG DOSING (CG) 64.56 mL/min; POTASSIUM,K 3.5 mmol/L (3.5-5.1)
[2024-06-23 21:50] VITALS: BP 158/98; PULSE 56
== END 2024-06-23 21:21 | disposition home or self-care (01) ==
LOC: MW.ED 18:50
DX: S09.90XA Unspecified injury of head, initial encounter (principal); S00.03XA Contusion of scalp, initial encounter; M53.3 Sacrococcygeal disorders, not elsewhere classified; Z88.8 Allergy status to other drugs, medicaments and biological substances; Z88.6 Allergy status to analgesic agent; Z91.048 Other nonmedicinal substance allergy status; W01.198A Fall on same level from slipping, tripping and stumbling with subsequent striking against other object, initial encounter; Y92.512 Supermarket, store or market as the place of occurrence of the external cause; Z75.8 Other problems related to medical facilities and other health care
CPT/HCPCS: 36415; 70450; 71045; 72125; 72128; 73030; 73521; 80053; 85025; 99284; A9270

== ENCOUNTER 2024-06-25 10:42 | Emergency (ER) | payer MEDICAID ==
[2024-06-25 11:11] VITALS: BP 127/66; PULSE 98
[2024-06-25] MEDS: Lidocaine 2% Viscous Solution 15 ML UD PO ONE (11:26)
[2024-06-25] MEDS: traMADol 50 MG Tab PO ONE (11:26)
== END 2024-06-25 11:29 | disposition home or self-care (01) ==
LOC: MW.ED 10:42
DX: K64.9 Unspecified hemorrhoids (principal); Z88.6 Allergy status to analgesic agent; Z88.8 Allergy status to other drugs, medicaments and biological substances; Z91.048 Other nonmedicinal substance allergy status
CPT/HCPCS: 99283; A9270

== ENCOUNTER 2024-08-18 07:43 | Day surgery (SDC) | payer MEDICAID, OTHER ==
[~2024-08-18 07:43] MED LIST changes: -Bupivacaine 0.25%/EPINEPHrine 1:200,000 10 ML SDV INJECT ONE; -Lactated Ringers 1,000 ML IV SCH; -Lidocaine 2% 5 ML SDV ONE; -Midazolam 1 MG/ML 2 ML SDV ONE; -Propofol 200 MG/20 ML SDV ONE; +Sodium Chloride 0.9% 10 ML Syringe FLUSH PRN; +Sodium Chloride 0.9% 2.5 ML Syringe FLUSH PRN; +Sodium Chloride 0.9% 20 ML SDV IV PRN; -ceFAZolin 2 GM in Premix Bag 1 BAG IV ONE; -fentaNYL 100 MCG/2 ML SDV ONE
[2024-08-18] MEDS: Lactated Ringers 1,000 ML IV SCH (08:20)
[2024-08-18] MEDS ORDERED: Propofol 200 MG/20 ML SDV ONE ×3 (09:11→10:08)
[2024-08-18] MEDS ORDERED: Lidocaine 2% 5 ML SDV ONE (09:11)
[2024-08-18] MEDS ORDERED: Magnesium Sulfate (4.06 MEQ/ML) 5 GM/10 ML SDV ONE (09:36)
[2024-08-18] MEDS ORDERED: fentaNYL 100 MCG/2 ML SDV ONE (10:07)
[2024-08-18 10:51] VITALS: BP 117/69; PULSE 70
== END 2024-08-18 10:55 | disposition home or self-care (01) ==
LOC: MW.SDS 07:43
PROVIDERS: ATTEND Surgery
DX: Z12.11 Encounter for screening for malignant neoplasm of colon (principal); D12.0 Benign neoplasm of cecum; K63.5 Polyp of colon; K57.30 Diverticulosis of large intestine without perforation or abscess without bleeding; Z86.0100 Personal history of colon polyps, unspecified; F32.A Depression, unspecified; E78.5 Hyperlipidemia, unspecified; Z79.899 Other long term (current) drug therapy; Z88.6 Allergy status to analgesic agent; Z88.8 Allergy status to other drugs, medicaments and biological substances
CPT/HCPCS: 45380; J0131; J2704; J3010; J7120; 00811; J3490

== ENCOUNTER 2025-01-15 00:22 | Emergency (ER) | payer MEDICAID, OTHER ==
[2025-01-15] MEDS: Sodium Chloride 0.9% 1,000 ML IV ONE (01:09)
[2025-01-15 01:10] LABS: BASOPHILS ABSOLUTE AUTO 0.05 K/uL (0.00-0.20); BASOPHILS PERCENT AUTO 0.4 % (0.0-1.0); EOSINOPHILS ABSOLUTE AUTO 0.02 K/uL (0.00-0.45); EOSINOPHILS PERCENT AUTO 0.2 % (0.0-6.0); HEMATOCRIT 37.2 % (37.0-47.0); HEMOGLOBIN 12.8 g/dL (12.0-16.0); IMMATURE GRAN ABSOLUTE AUTO 0.06 K/uL (0.00-0.05); IMMATURE GRAN PERCENT AUTO 0.5 % (0.0-0.4); LYMPHOCYTES ABSOLUTE AUTO 4.63 K/uL (1.00-4.80); LYMPHOCYTES PERCENT AUTO 39.4 % (24.0-44.0); MEAN CORPUSCULAR HEMOGLOBIN 29.1 pg (28.0-32.0); MEAN CORPUSCULAR HGB CONC 34.4 g/dL (32.0-36.0); MEAN CORPUSCULAR VOLUME 84.5 fL (83.0-99.0); MEAN PLATELET VOLUME 9.1 fL (9.4-12.3); MONOCYTES ABSOLUTE AUTO 0.65 K/uL (0.00-0.80); MONOCYTES PERCENT AUTO 5.5 % (0.0-8.0); NEUTROPHILS ABSOLUTE AUTO 6.34 K/uL (1.80-7.70); PLATELET COUNT,PLT 293 K/uL (150-400); WHITE BLOOD CELL COUNT,WBC 11.75 K/uL (3.9-11.3)
[2025-01-15 01:58] LABS: A/G RATIO 0.8 (0.9-1.6); ALBUMIN 3.3 g/dL (3.4-5.0); BILIRUBIN TOTAL 0.2 mg/dL (0.2-1.0); CALCIUM 8.6 mg/dL (8.5-10.1); CARBON DIOXIDE,CO2 26.8 mmol/L (21.0-32.0); EST CRCL DRUG DOSING (CG) 58.11 mL/min; MAGNESIUM 1.9 mg/dL (1.8-2.4); POTASSIUM,K 3.3 mmol/L (3.5-5.1); PROTEIN TOTAL,TP 7.4 g/dL (6.4-8.2)
[2025-01-15] MEDS: Albuterol/Ipratropium 3.0-0.5 MG/3 ML Neb Soln NEB ONE (02:00)
[2025-01-15] MEDS: methylPREDNISolone Sodium Succinate 125 MG/2 ML SDV IVPUSH ONE (02:00)
[2025-01-15 02:30] VITALS: BP 143/82
[2025-01-15 02:42] VITALS: PULSE 78
== END 2025-01-15 02:40 | disposition home or self-care (01) ==
LOC: MW.ED 00:22
DX: J44.1 Chronic obstructive pulmonary disease with (acute) exacerbation (principal); J18.9 Pneumonia, unspecified organism; I10 Essential (primary) hypertension; E66.9 Obesity, unspecified; Z88.8 Allergy status to other drugs, medicaments and biological substances; Z79.899 Other long term (current) drug therapy; Z68.36 Body mass index [BMI] 36.0-36.9, adult; Z87.891 Personal history of nicotine dependence
CPT/HCPCS: 36415; 71045; 71045-26; 80053; 83605; 83735; 83880; 84484; 85025; 93005; 96361; 96374; 99283; 99285-25; A9270-GY; J2919; J7030

== ENCOUNTER 2025-02-19 05:21 | Emergency (ER) | payer MEDICAID, OTHER ==
[2025-02-19 06:14] LABS: BASOPHILS ABSOLUTE AUTO 0.03 K/uL (0.00-0.20); BASOPHILS PERCENT AUTO 0.3 % (0.0-1.0); EOSINOPHILS ABSOLUTE AUTO 0.23 K/uL (0.00-0.45); EOSINOPHILS PERCENT AUTO 2.5 % (0.0-6.0); HEMATOCRIT 39.3 % (37.0-47.0); HEMOGLOBIN 13.4 g/dL (12.0-16.0); IMMATURE GRAN ABSOLUTE AUTO 0.03 K/uL (0.00-0.05); IMMATURE GRAN PERCENT AUTO 0.3 % (0.0-0.4); LYMPHOCYTES ABSOLUTE AUTO 2.22 K/uL (1.00-4.80); LYMPHOCYTES PERCENT AUTO 24.3 % (24.0-44.0); MEAN CORPUSCULAR HEMOGLOBIN 29.5 pg (28.0-32.0); MEAN CORPUSCULAR HGB CONC 34.1 g/dL (32.0-36.0); MEAN CORPUSCULAR VOLUME 86.6 fL (83.0-99.0); MEAN PLATELET VOLUME 9.1 fL (9.4-12.3); MONOCYTES ABSOLUTE AUTO 0.66 K/uL (0.00-0.80); MONOCYTES PERCENT AUTO 7.2 % (0.0-8.0); NEUTROPHILS ABSOLUTE AUTO 5.98 K/uL (1.80-7.70); NEUTROPHILS PERCENT AUTO 65.4 % (41.0-71.0); PLATELET COUNT,PLT 251 K/uL (150-400); RED BLOOD CELL COUNT 4.54 M/uL (4.10-5.30); WHITE BLOOD CELL COUNT,WBC 9.15 K/uL (3.9-11.3)
[2025-02-19 06:48] LABS: A/G RATIO 0.7 (0.9-1.6); BILIRUBIN TOTAL 0.3 mg/dL (0.2-1.0); C-REACTIVE PROTEIN 1.19 mg/dL (<0.3); CALCIUM 8.1 mg/dL (8.5-10.1); CARBON DIOXIDE,CO2 28.9 mmol/L (21.0-32.0); CREATININE 0.9 mg/dL (0.6-1.0); EST CRCL DRUG DOSING (CG) 63.78 mL/min; POTASSIUM,K 3.2 mmol/L (3.5-5.1); PROTEIN TOTAL,TP 7.1 g/dL (6.4-8.2)
[2025-02-19] MEDS: Iopamidol 755 MG/ML 500 ML Multipack Bottle IVPUSH ONE (07:08)
[2025-02-19] MEDS ORDERED: Dexamethasone 4 MG/ML SDV IVPUSH ONE (08:00)
[2025-02-19] MEDS: Ampicillin/Sulbactam Na 3 GM in Sodium Chloride 0.9% 100 ML IV ONE (08:13)
[2025-02-19 08:56] VITALS: BP 122/72; PULSE 86
== END 2025-02-19 08:56 | disposition home or self-care (01) ==
LOC: MW.ED 05:21
DX: H60.501 Unspecified acute noninfective otitis externa, right ear (principal); I10 Essential (primary) hypertension; E66.9 Obesity, unspecified; Z88.8 Allergy status to other drugs, medicaments and biological substances; Z91.048 Other nonmedicinal substance allergy status
CPT/HCPCS: 36415; 70491; 80053; 85025; 85652; 86140; 96365; 96375; 99284; J0295; J1100; Q9967; 99283

== ENCOUNTER 2025-07-15 09:48 | Emergency (ER) | payer MEDICAID, OTHER ==
[2025-07-15] MEDS: Tetracaine HCl/PF 0.5% 4 ML Bottle EYERT ONE (10:07)
[2025-07-15 10:22] LABS: BASOPHILS ABSOLUTE AUTO 0.04 K/uL (0.00-0.20); BASOPHILS PERCENT AUTO 0.5 % (0.0-1.0); EOSINOPHILS ABSOLUTE AUTO 0.28 K/uL (0.00-0.45); EOSINOPHILS PERCENT AUTO 3.7 % (0.0-6.0); IMMATURE GRAN ABSOLUTE AUTO 0.01 K/uL (0.00-0.05); IMMATURE GRAN PERCENT AUTO 0.1 % (0.0-0.4); LYMPHOCYTES ABSOLUTE AUTO 2.61 K/uL (1.00-4.80); LYMPHOCYTES PERCENT AUTO 34.6 % (24.0-44.0); MEAN PLATELET VOLUME 9.1 fL (9.4-12.3); MONOCYTES ABSOLUTE AUTO 0.52 K/uL (0.00-0.80); MONOCYTES PERCENT AUTO 6.9 % (0.0-8.0); NEUTROPHILS ABSOLUTE AUTO 4.09 K/uL (1.80-7.70); NEUTROPHILS PERCENT AUTO 54.2 % (41.0-71.0); NRBC ABSOLUTE 0.00 K/uL (0.00-0.02); NRBC PERCENT 0.0 /100WBC (0.0-0.2); PLATELET COUNT,PLT 246 K/uL (150-400); RED BLOOD CELL COUNT 4.23 M/uL (4.10-5.30); WHITE BLOOD CELL COUNT,WBC 7.55 K/uL (3.9-11.3)
[2025-07-15] MEDS: Iopamidol 755 MG/ML 500 ML Multipack Bottle IVPUSH STA (10:31)
[2025-07-15 10:40] LABS: BLOOD UREA NITROGEN,BUN 13.0 mg/dL (7.0-18.0); CARBON DIOXIDE,CO2 27.4 mmol/L (21.0-32.0); CHLORIDE,CL 105.0 mmol/L (98-107); CREATININE 0.9 mg/dL (0.6-1.0); EST CRCL DRUG DOSING (CG) 63.78 mL/min; GLUCOSE RANDOM 112.0 mg/dL (74-106); POTASSIUM,K 3.1 mmol/L (3.5-5.1); SODIUM,NA 142.0 mmol/L (136-145)
[2025-07-15 10:41] LABS: ESTIMATED GFR 74.0 mL/min (>60)
[2025-07-15] MEDS: cefTRIAXone 1 GM in Water For Injection, Sterile 10 ML IVPUSH ONE (11:22)
[2025-07-15 11:24] VITALS: BP 133/93; PULSE 89
[2025-07-15] MEDS: Potassium Chloride 20 MEQ Tab.ER PO ONE (11:31)
== END 2025-07-15 11:38 | disposition home or self-care (01) ==
LOC: MW.ED 09:48
DX: L03.213 Periorbital cellulitis (principal); H10.31 Unspecified acute conjunctivitis, right eye; I10 Essential (primary) hypertension; F17.210 Nicotine dependence, cigarettes, uncomplicated; Z79.899 Other long term (current) drug therapy; Z88.8 Allergy status to other drugs, medicaments and biological substances; Z88.6 Allergy status to analgesic agent; Z91.048 Other nonmedicinal substance allergy status
CPT/HCPCS: 36415; 70487; 80048; 85025; 96374; 99284; A9270; J0696; Q9967; 99283; J3490

== ENCOUNTER 2025-09-02 22:58 | Emergency (ER) | payer MEDICAID, OTHER ==
[2025-09-02 23:08] VITALS: PULSE 114
[2025-09-02] MEDS ORDERED: Sodium Chloride 0.9% 10 ML Syringe FLUSH PRN (23:15)
[2025-09-02] MEDS ORDERED: Sodium Chloride 0.9% 2.5 ML Syringe FLUSH PRN (23:15)
[2025-09-02] MEDS: Ketorolac 30 MG/ML SDV IVPUSH ONE (23:27)
[2025-09-02 23:30] LABS: BASOPHILS ABSOLUTE AUTO 0.05 K/uL (0.00-0.20); BASOPHILS PERCENT AUTO 0.5 % (0.0-1.0); EOSINOPHILS ABSOLUTE AUTO 0.13 K/uL (0.00-0.45); EOSINOPHILS PERCENT AUTO 1.3 % (0.0-6.0); IMMATURE GRAN ABSOLUTE AUTO 0.02 K/uL (0.00-0.05); IMMATURE GRAN PERCENT AUTO 0.2 % (0.0-0.4); LYMPHOCYTES ABSOLUTE AUTO 2.84 K/uL (1.00-4.80); LYMPHOCYTES PERCENT AUTO 28.5 % (24.0-44.0); MEAN PLATELET VOLUME 9.2 fL (9.4-12.3); MONOCYTES ABSOLUTE AUTO 0.91 K/uL (0.00-0.80); MONOCYTES PERCENT AUTO 9.1 % (0.0-8.0); NEUTROPHILS ABSOLUTE AUTO 6.02 K/uL (1.80-7.70); NEUTROPHILS PERCENT AUTO 60.4 % (41.0-71.0); NRBC ABSOLUTE 0.00 K/uL (0.00-0.02); NRBC PERCENT 0.0 /100WBC (0.0-0.2); PLATELET COUNT,PLT 253 K/uL (150-400); RED BLOOD CELL COUNT 4.67 M/uL (4.10-5.30); WHITE BLOOD CELL COUNT,WBC 9.97 K/uL (3.9-11.3)
[2025-09-02] MEDS: cefTRIAXone 2 GM in Water For Injection, Sterile 20 ML IVPUSH ONE (23:36)
[2025-09-02 23:59] LABS: LACTIC ACID 0.9 mmol/L (0.4-2.0)
[2025-09-03] LABS: A/G RATIO 0.6 (0.9-1.6); ALANINE AMINOTRANSFERASE,ALT 23 IU/L (14-63); ASPARTATE AMNIOTRANSFERASE,AST 25 IU/L (15-37); BILIRUBIN TOTAL 0.7 mg/dL (0.2-1.0); BLOOD UREA NITROGEN,BUN 8 mg/dL (7.0-18.0); CARBON DIOXIDE,CO2 28.7 mmol/L (21.0-32.0); CHLORIDE,CL 100 mmol/L (98-107); CREATININE 0.9 mg/dL (0.6-1.0); EST CRCL DRUG DOSING (CG) 63.78 mL/min; ETHANOL BLOOD MEDICAL <3 mg/dL; GLUCOSE RANDOM 112 mg/dL (74-106); POTASSIUM,K 3.4 mmol/L (3.5-5.1); PROTEIN TOTAL,TP 7.7 g/dL (6.4-8.2); SODIUM,NA 135 mmol/L (136-145)
[2025-09-03 00:01] LABS: ESTIMATED GFR 74 mL/min (>60)
[2025-09-03 02:05] VITALS: BP 139/80
== END 2025-09-03 02:12 | disposition home or self-care (01) ==
LOC: MW.ED 22:58
DX: J18.9 Pneumonia, unspecified organism (principal); E86.0 Dehydration; F17.200 Nicotine dependence, unspecified, uncomplicated; I10 Essential (primary) hypertension; E66.9 Obesity, unspecified; J44.9 Chronic obstructive pulmonary disease, unspecified; Z88.8 Allergy status to other drugs, medicaments and biological substances; Z88.6 Allergy status to analgesic agent
CPT/HCPCS: 36415; 71045; 74177; 80053; 80307; 83605; 83690; 84484; 85025; 87040; 87428; 93005; 96361; 96374; 96375; 99284; A4216; J0696; J1885; J2765; J7030; Q0144; 93010; A9270-GY; J0456; J7050